=== PATIENT | female | born 1980 | race Hispanic/Latino ===

== ENCOUNTER → 2016-08-25 | Outpatient (CLI) | payer OTHER ==
[~2016-08-25] MED LIST: AC325T PO; AGM875T PO; CPR500T PO; DCS100C PO; FAMO20TA5 PO; FERR325T74 PO; HYDR-2890 PO; HYDR-34 PO; IBP800T PO; METR500T PO; NITR-65 PO; ONDAN4ODT PO; PREN1TAB19 PO; PREN1TAB39 PO; TRM50T PO
--- NOTE | 2016-08-25 09:55 | Diagnostic Imaging Report ---
EXAMINATION: Bilateral diagnostic mammogram with a Computer Aided Detection (CAD) system. COMPARISON: 03/28/2014. INDICATION: Enlargement of a palpable mass in the central upper aspect of the right breast. FINDINGS: The breasts are composed of heterogeneously dense parenchyma which may decrease mammographic sensitivity. There is a biopsy clip marking a lesion in the central upper aspect of the right breast. This appears slightly more prominent compared to the prior exam and would correspond with the palpable area. The left breast demonstrates no change. IMPRESSION: The previously biopsy-proven fibroadenoma appears more prominent compared to the prior exam in the central slightly upper aspect of the right breast. An ultrasound evaluation is pending. ACR BI-RADS Category 0: Incomplete. (Needs additional imaging evaluation). Result letter will be mailed to the patient. Note: At least 10% of breast cancer is not imaged by mammography. Dictated by: Dictated on workstation # [id number]
--- NOTE | 2016-08-25 10:06 | Diagnostic Imaging Report ---
EXAMINATION: Bilateral breast ultrasound. INDICATION: Bilateral breast lumps. FINDINGS: There is a hypoechoic lobulated lesion in the right breast at the 11 o'clock zone 1 cm from the nipple measuring 2 x 1.1 x 1.9 cm in size. A biopsy clip is noted in the center of this lesion. There is no internal vascularity demonstrated with color Doppler. This is compatible with a fibroadenoma as confirmed with the biopsy results previously. The left breast area of lump around the 2 to 3 o'clock zone was scanned with no underlying abnormality seen. IMPRESSION: Stable right breast biopsy-proven fibroadenoma at the 11 o'clock zone. The left breast palpable area demonstrates no underlying lesion. Clinical followup is recommended. ACR BI-RADS Category 2: Benign findings. Dictated by: Dictated on workstation # [id number]
== END ==
LOC: RAD 08:09
PROVIDERS: ATTEND Nurse Practitioner Family
DX: D24.1 Benign neoplasm of right breast (principal)
CPT/HCPCS: 76642; 77066

== ENCOUNTER → 2016-11-27 | Outpatient (CLI) | payer OTHER ==
--- NOTE | 2016-11-27 16:01 | Diagnostic Imaging Report ---
INDICATION: Pelvic pain TECHNIQUE: Multiple real time abad scale sonographic images were obtained of the pelvis transabdominally and transvaginally. CORRELATION STUDY: None FINDINGS: UTERUS/ENDOMETRIUM: Uterus measures 7.9 x 5.2 x 4.1 cm. Endometrial thickness is 8 mm. The uterus and endometrium appearing unremarkable. RIGHT OVARY: 3.3 x 3.0 x 2.0 cm. LEFT OVARY: 2.2 x 2.7 x 1.9 cm. Few small cysts and follicles, likely physiologic of both ovaries. Vascular flow is demonstrated to both ovaries. No significant free pelvic fluid. IMPRESSION: 1. Unremarkable appearing pelvic ultrasound examination. Dictated by: Dictated on workstation # [id number]
== END ==
LOC: RAD 13:14
PROVIDERS: ATTEND Family Medicine
DX: R10.2 Pelvic and perineal pain (principal)
CPT/HCPCS: 76830; 76856

== ENCOUNTER 2018-07-07 07:45 | Inpatient (IN) | payer SELFPAY ==
[~2018-07-07] VITALS: Ht 153 cm; Wt 59.0 kg
[2018-07-07] MEDS ORDERED: NS IV 1000 ML 1,000 ML IV STA (08:03)
[2018-07-07] MEDS ORDERED: fentaNYL INJECTION 100 MCG/2 ML AMP IVP STA (08:03)
[2018-07-07 08:13] LABS: BASOPHILS % (AUTO) 0 % (0-10); EOSINOPHILS # (AUTO) 0.6 10^3/uL (0.0-0.3); EOSINOPHILS % (AUTO) 4 % (0-10); HEMATOCRIT 42 % (35-52); HEMOGLOBIN 14.2 G/DL (11.5-16.0); LYMPHOCYTES # (AUTO) 0.9 X 10^3 (1.0-4.0); LYMPHOCYTES % (AUTO) 6 % (12-44); MEAN CORPUSCULAR HEMOGLOBIN 31 PG (25-34); MEAN CORPUSCULAR HGB CONC 34 G/DL (32-36); MEAN CORPUSCULAR VOLUME 90 FL (80-99); MEAN PLATELET VOLUME 10.6 FL (7.4-10.4); MONOCYTES # (AUTO) 0.8 X 10^3 (0.0-1.0); MONOCYTES % (AUTO) 5 % (0-12); NEUTROPHILS # (AUTO) 13.1 X 10^3 (1.8-7.8); NEUTROPHILS % (AUTO) 85 % (42-75); PLATELET COUNT 360 10^3/uL (130-400); RED CELL DISTRIBUTION WIDTH 13.1 % (10.0-14.5); WHITE BLOOD COUNT 15.4 10^3/uL (4.3-11.0)
[2018-07-07] MEDS ORDERED: ONDANSETRON 4 MG/2 ML (SDV) Z0FRAN IVP ONE (08:15)
--- NOTE | 2018-07-07 08:16 | ED Abdominal Pain ---
General Chief Complaint: Abdominal/GI Problems Stated Complaint: ABD PAIN Source of Information: Patient Exam Limitations: Language Barrier History of Present Illness Date Seen by Provider: July 07, 2018 Time Seen by Provider: 07:56 Initial Comments History using and paravertebral line. Patient here with report of left upper quadrant abdominal pain that has been intermittent for the last 3 days but much worse today. States that severe. Has nausea but no vomiting. Denies diarrhea. Denies blood in urine or stool. Denies dysuria. States pain is severe. No aggravating or relieving factors. Timing/Duration: 2-3 Days, Changing Over Time, Getting Worse Severity/Quality: Severe, Aching Location: [facility] Radiation: No Radiation Activities at Onset: None Modifying Factors: Worsens With Movement Associated Symptoms: No Back Pain, No Chest Pain, No Fever/Chills; Nausea/ Vomiting; No Shortness of Air, No Weakness Allergies and Home Medications Allergies Coded Allergies: No Known Drug Allergies (Unverified , 07/15/12) Home Medications Acetaminophen 325 Mg Tablet, 325 MG PO PRN, (Reported) Ciprofloxacin 500 Mg Tablet, 1 TAB PO BID, (Reported) NEW SCRIPT Ibuprofen 800 Mg Tab, 800 MG PO PRN, (Reported) FEVER Patient Home Medication List Home Medication List Reviewed: Yes Review of Systems Review of Systems Constitutional: see HPI; No chills, No fever EENTM: No Symptoms Reported Respiratory: No Symptoms Reported Cardiovascular: Denies Chest Pain, Denies Edema Gastrointestinal: Abdominal Pain; Denies Diarrhea; Nausea; Denies Vomiting Genitourinary: No Symptoms Reported Musculoskeletal: no symptoms reported Skin: no symptoms reported Psychiatric/Neurological: No Symptoms Reported All Other Systems Reviewed Negative Unless Noted: Yes Past Rhphjrd-Whdymy-Nyhgwe Hx Past Med/Social Hx: Reviewed Nursing Past Med/Soc Hx Patient Social History Alcohol Use: Denies Use Recreational Drug Use: No Smoking Status: Never a Smoker Recent Foreign Travel: No Contact w/Someone Who Travel: No Past Medical History Surgeries: Yes (breast biopsy a hand or was 4 ordered hCG of blood staining his send) Respiratory: No Cardiac: No Neurological: No : No Reproductive Disorders: No Sexually Transmitted Disease: Yes Genitourinary: No Gastrointestinal: No Musculoskeletal: No Endocrine: No HEENT: No Family Medical History Reviewed Nursing Family Hx No Pertinent Family Hx Physical Exam Vital Signs Vital Signs - First Documented 07/07/18 07:49 Temp 98.4 Pulse 67 Resp 18 B/P (MAP) 121/87 (98) Pulse Ox 99 O2 Delivery Room Air Capillary Refill : Height/Weight/BMI Height: 4'8.00" Weight: 130lbs. oz. 58.652738vs; BMI Method:Stated General Appearance: WD/WN, no apparent distress HEENT: PERRL/EOMI, pharynx normal Neck: full range of motion, supple Respiratory: lungs clear, normal breath sounds (the) Cardiovascular: regular rate, rhythm, no murmur Peripheral Pulses: 2+ Dorsalis Pedis (R), 2+ Left Dors-Pedis (L), 2+ Radial Pulses (R), 2+ Radial Pulses (L) Gastrointestinal: No guarding, No rebound; tenderness Extremities: non-tender, normal inspection Back: normal inspection, no CVA tenderness, no vertebral tenderness Neurologic/Psychiatric: alert, oriented x 3 Skin: normal color, warm/dry Progress/Results/Core Measures Results/Orders Lab Results Laboratory Tests Test 07/07/18 08:04 07/07/18 08:11 Range/Units White Blood Count 15.4 H 4.3-11.0 10^3/uL Red Blood Count 4.62 4.35-5.85 10^6/uL Hemoglobin 14.2 11.5-16.0 G/DL Hematocrit 42 35-52 % Mean Corpuscular Volume 90 80-99 FL Mean Corpuscular Hemoglobin 31 25-34 PG Mean Corpuscular Hemoglobin Concent 34 32-36 G/DL Red Cell Distribution Width 13.1 10.0-14.5 % Platelet Count 360 130-400 10^3/uL Mean Platelet Volume 10.6 H 7.4-10.4 FL Neutrophils (%) (Auto) 85 H 42-75 % Lymphocytes (%) (Auto) 6 L 12-44 % Monocytes (%) (Auto) 5 0-12 % Eosinophils (%) (Auto) 4 0-10 % Basophils (%) (Auto) 0 0-10 % Neutrophils # (Auto) 13.1 H 1.8-7.8 X 10^3 Lymphocytes # (Auto) 0.9 L 1.0-4.0 X 10^3 Monocytes # (Auto) 0.8 0.0-1.0 X 10^3 Eosinophils # (Auto) 0.6 H 0.0-0.3 10^3/uL Basophils # (Auto) 0.0 0.0-0.1 10^3/uL Neutrophils % (Manual) 83 % Lymphocytes % (Manual) 3 % Monocytes % (Manual) 6 % Eosinophils % (Manual) 5 % Band Neutrophils 3 % Blood Morphology Comment NORMAL Sodium Level 141 135-145 MMOL/L Potassium Level 4.1 3.6-5.0 MMOL/L Chloride Level 106 98-107 MMOL/L Carbon Dioxide Level 24 21-32 MMOL/L Anion Gap 11 5-14 MMOL/L Blood Urea Nitrogen 13 7-18 MG/DL Creatinine 0.82 0.60-1.30 MG/DL Estimat Glomerular Filtration Rate > 60 BUN/Creatinine Ratio 16 Glucose Level 111 H 70-105 MG/DL Calcium Level 9.5 8.5-10.1 MG/DL Corrected Calcium 9.3 8.5-10.1 MG/DL Total Bilirubin 0.5 0.1-1.0 MG/DL Aspartate Amino Transf (AST/SGOT) 25 5-34 U/L Alanine Aminotransferase (ALT/SGPT) 20 0-55 U/L Alkaline Phosphatase 57 40-136 U/L Total Protein 7.5 6.4-8.2 GM/DL Albumin 4.3 3.2-4.5 GM/DL Amylase Level 49 25-125 U/L Lipase 17 8-78 U/L Serum Test, Qualitative NEGATIVE NEGATIVE Urine Color YELLOW Urine Clarity CLEAR Urine pH 8 5-9 Urine Specific [place] 1.015 L 1.016-1.022 Urine Protein 2+ H NEGATIVE Urine Glucose (UA) NEGATIVE NEGATIVE Urine Ketones 2+ H NEGATIVE Urine Nitrite NEGATIVE NEGATIVE Urine Bilirubin NEGATIVE NEGATIVE Urine Urobilinogen NORMAL NORMAL MG/DL Urine Leukocyte Esterase 2+ H NEGATIVE Urine RBC (Auto) 1+ H NEGATIVE Urine RBC RARE /HPF Urine WBC 2-5 /HPF Urine Squamous Epithelial Cells 10-25 H /HPF Urine Crystals PRESENT H /LPF Urine Amorphous Sediment MOD JHOANA PHOSPHATE H /LPF Urine Bacteria TRACE /HPF Urine Casts NONE /LPF Urine Mucus MODERATE H /LPF Urine Culture Indicated YES My Orders Orders - BRI BARRAGAN MD Amylase (07/07/18 08:03) Cbc With Automated Diff (07/07/18 08:03) Comprehensive Metabolic Panel (07/07/18 08:03) Hcg,Qualitative Serum (07/07/18 08:03) Lipase (07/07/18 08:03) Ua Culture If Indicated (07/07/18 08:03) Ondansetron Injection (Zofran Injectio (07/07/18 08:15) Ns Iv 1000 Ml (Sodium Chloride 0.9%) (07/07/18 08:03) Ed Iv/Invasive Line Start (07/07/18 08:03) Fentanyl Injection (Sublimaze Injection (07/07/18 08:03) Manual Differential (07/07/18 08:04) Urine Culture (07/07/18 08:11) Ct Abdomen/Pelvis W (07/07/18 08:39) Iohexol Injection (Omnipaque 350 Mg/Ml 1 (07/07/18 09:00) Received Contrast (Hold Metformin- Contr (07/07/18 09:00) Sodium Chloride Flush (Catheter Flush Sy (07/07/18 09:00) Ns (Ivpb) (Sodium Chloride 0.9% Ivpb Bag (07/07/18 09:00) Medications Given in ED Current Medications Medications Dose Ordered Sig/Arsenio Route Start Time Stop Time Status Last Admin Dose Admin Iohexol 100 ml ONCE ONCE IV 07/07/18 09:00 07/07/18 09:01 DC 07/07/18 09:24 100 ML Ondansetron HCl 4 mg ONCE ONCE IVP 07/07/18 08:15 07/07/18 08:16 DC 07/07/18 08:16 4 MG Sodium Chloride 10 ml NEEDED PRN IV 07/07/18 09:00 07/07/18 09:24 10 ML Sodium Chloride 100 ml ONCE ONCE IV 07/07/18 09:00 07/07/18 09:01 DC 07/07/18 09:24 80 ML Vital Signs/I&O 07/07/18 07:49 Temp 98.4 Pulse 67 Resp 18 B/P (MAP) 121/87 (98) Pulse Ox 99 O2 Delivery Room Air Progress Progress Note : Progress Note Seen and evaluated. IV, labs, UA, normal saline 1 L bolus, Zofran 4 mg IV and fentanyl 50 g IV ordered. Monitor patient. CT complete. Does show small bowel obstruction. Patient will require NG tube. Nurse talked with the patient about findings and concerns and NG tube was placed. Patient to be admitted. I did discuss the case with Dr. Zhao at 1017 and he accepts patient for consult. I discussed the case with Dr. Navarro at 1045 and she accepts patient for admission. Admit, inpatient status. Patient agrees with plan. Diagnostic Imaging Diagonstic Imaging: CT Plain Films/CT/US/NM/MRI: abdomen, pelvis Comments [facility], [place] NAME: FROILAN PACHECO [facility] REC#: [id number] PT STATUS: REG ER : 1980 PHYSICIAN: BRI BARRAGAN MD ADMIT DATE: 07/07/18/ER Draft Date of Exam:07/07/18 CT ABDOMEN/PELVIS W PROCEDURE: CT abdomen and pelvis with contrast. TECHNIQUE: Multiple contiguous axial images were obtained through the abdomen and pelvis after administration of intravenous contrast. Auto Exposure Controls were utilized during the CT exam to meet ALARA standards for radiation dose reduction. INDICATION: Abdominal pain. Comparison is made with prior CT from 06/02/2011. Lung bases are clear of acute infiltrates. There is calcified granuloma in the right lower lobe. Study is moderately compromised due to respiratory motion. There is some moderate fluid-filled distention to the stomach. There are also multiple fluid-filled and distended small bowel loops throughout the abdomen. There appear to be normal caliber distal small bowel loops with transition. Features are concerning for small bowel obstruction. The colon is decompressed. There is a small amount of free fluid surrounding the liver. There is some free fluid in the pelvis. No well-formed fluid collection or abscess is seen. No free air is identified. No discrete liver mass is seen. Gallbladder is unremarkable. There is no biliary duct dilatation. The pancreas and spleen are unremarkable. No adrenal mass is seen. Kidneys are unremarkable. Aorta is nonaneurysmal. Uterus and bladder are unremarkable. Sclerotic focus left femoral head is similar to study from 2012, consistent with benign etiology. IMPRESSION: Compromised by motion artifact. There is moderate fluid-filled distention to the stomach and small bowel loops with transition distally consistent with small bowel obstruction. Free fluid is present. No other significant abnormality is detected. Dictated on workstation # [id number] Dict: 07/07/18 0926 Trans: 07/07/[address] [facility] [id number] Interpreted by: CHRISTINA SHARIF MD Electronically signed by: Departure Communication (Admissions) Time/Spoke to Admitting Phy: 10:45 Time/Spoke to Consulting Phy: 10:17 Impression Primary Impression: Small bowel obstruction Disposition: ADMITTED INPATIENT Condition: Stable Admissions Decision to Admit Reason: Admit from ER (General) Decision to Admit/Date: July 07, 2018 Time/Decision to Admit Time: 10:17 Departure-Patient Inst. Referrals: LIV FREEMAN DO (PCP) Primary Care Physician PRAKASH ANGEL APRN (Family) Primary Care Physician BRI BARRAGAN MD July 07, 2018 08:15
[2018-07-07 08:30] LABS: BILIRUBIN,URINE NEGATIVE (NEGATIVE); GLUCOSE, URINE (UA) NEGATIVE (NEGATIVE); KETONES,URINE 2+ (NEGATIVE); LEUKOCYTE ESTERASE ,URINE 2+ (NEGATIVE); NITRITE,URINE NEGATIVE (NEGATIVE); PH,URINE 8 (5-9); PROTEIN,URINE 2+ (NEGATIVE); UROBILINOGEN,URINE NORMAL (NORMAL)
[2018-07-07 08:31] LABS: BACTERIA,URINE TRACE /HPF; CLARITY,URINE CLEAR; COLOR,URINE YELLOW; RBC,URINE RARE /HPF
[2018-07-07 08:32] LABS: AMORPHOUS SEDIMENT,UR MOD AMOR PHOSPHATE /LPF
[2018-07-07 08:34] LABS: ALANINE AMINOTRANSFERASE 20 U/L (0-55); ALBUMIN 4.3 GM/DL (3.2-4.5); ALKALINE PHOSPHATASE 57 U/L (40-136); AMYLASE 49 U/L (25-125); BILIRUBIN,TOTAL 0.5 MG/DL (0.1-1.0); BUN/CREATININE RATIO 16; CALCIUM 9.5 MG/DL (8.5-10.1); CARBON DIOXIDE 24 MMOL/L (21-32); CHLORIDE 106 MMOL/L (98-107); CREATININE SERUM 0.82 MG/DL (0.60-1.30); GFR ESTIMATED > 60; GLUCOSE 111 MG/DL (70-105); LIPASE 17 U/L (8-78); POTASSIUM 4.1 MMOL/L (3.6-5.0); SODIUM 141 MMOL/L (135-145); TOTAL PROTEIN 7.5 GM/DL (6.4-8.2)
[2018-07-07 08:51] LABS: BAND NEUTROPHILS 3 %; EOSINOPHILS % (MANUAL) 5 %; LYMPHOCYTES % (MANUAL) 3 %; MONOCYTES % (MANUAL) 6 %; NEUTROPHILS % (MANUAL) 83 %
[2018-07-07 08:52] LABS: RBC MORPH NORMAL
[2018-07-07] MEDS ORDERED: CATHETER FLUSH 10 ML SYR IV PRN ×2 (09:00→13:45)
[2018-07-07] MEDS ORDERED: HOLD METFORMIN - RECEIVED CONTRAST 20 ML VIAL IV SCH (09:00)
[2018-07-07] MEDS ORDERED: NS 100 ML (IVPB) BAG IV ONE (09:00)
[2018-07-07] MEDS ORDERED: IOHEXOL 350 MG/ML 100 ML (OMNIPAQUE 350) VIAL IV ONE (09:00)
--- NOTE | 2018-07-07 09:37 | Diagnostic Imaging Report ---
PROCEDURE: CT abdomen and pelvis with contrast. TECHNIQUE: Multiple contiguous axial images were obtained through the abdomen and pelvis after administration of intravenous contrast. Auto Exposure Controls were utilized during the CT exam to meet ALARA standards for radiation dose reduction. INDICATION: Abdominal pain. Comparison is made with prior CT from 06/02/2011. Lung bases are clear of acute infiltrates. There is calcified granuloma in the right lower lobe. Study is moderately compromised due to respiratory motion. There is some moderate fluid-filled distention to the stomach. There are also multiple fluid-filled and distended small bowel loops throughout the abdomen. There appear to be normal caliber distal small bowel loops with transition. Features are concerning for small bowel obstruction. The colon is decompressed. There is a small amount of free fluid surrounding the liver. There is some free fluid in the pelvis. No well-formed fluid collection or abscess is seen. No free air is identified. No discrete liver mass is seen. Gallbladder is unremarkable. There is no biliary duct dilatation. The pancreas and spleen are unremarkable. No adrenal mass is seen. Kidneys are unremarkable. Aorta is nonaneurysmal. Uterus and bladder are unremarkable. Sclerotic focus left femoral head is similar to study from 2012, consistent with benign etiology. IMPRESSION: Compromised by motion artifact. There is moderate fluid-filled distention to the stomach and small bowel loops with transition distally consistent with small bowel obstruction. Free fluid is present. No other significant abnormality is detected. Dictated by: Dictated on workstation # [id number]
--- NOTE | 2018-07-07 09:46 | NUR ---
TO ROOM EYES CLOSED APPEARS TO BE RESTING FRIEND NOT AT BEDSIED. PHONE RANG PATIENT ANSWERED.
--- NOTE | 2018-07-07 10:25 | NUR ---
LANGUAGE LINE CALLED TO EXPLAIN NG PROCEDURE TO HER.
--- OUTSIDE RECORDS SUMMARY | 2018-07-07 11:11 | XMS REPORT | Continuity of Care Document ---
Demographics Address [address] [place] [address] x Preferred Language Unknown Marital Status Unknown Moravian Affiliation Unknown Race Unknown Ethnic Group Unknown Author Organization Unknown Address Unknown Allergies Active Description Code Type Severity Reaction Onset Reported/Identified Relationship to Patient Clinical Status Yes No Known Drug Allergies [id number] Drug Allergy Unknown N/A 07/15/2012 Medications There is no data. Problems Date Dx Coded Attending Type Code Diagnosis Diagnosed By 05/03/2010 Ot 285.9 05/03/2010 Ot 616.10 05/03/2010 Ot 644.21 05/03/2010 Ot 646.61 05/03/2010 Ot 648.22 05/03/2010 Ot 648.91 05/03/2010 Ot 658.01 05/03/2010 Ot 658.11 05/03/2010 Ot 658.41 05/03/2010 Ot 664.11 05/03/2010 Ot V02.51 05/03/2010 Ot V06.1 05/03/2010 Ot V23.7 05/03/2010 Ot V27.0 02/17/2011 Ot 784.0 05/31/2011 Ot 530.81 ESOPHAGEAL REFLUX 05/31/2011 Ot 789.06 ABDOMINAL PAIN, EPIGASTRIC 06/02/2011 Ot 784.0 HEADACHE 06/02/2011 Ot 789.06 ABDOMINAL PAIN, EPIGASTRIC 06/02/2011 Ot 599.0 URIN TRACT INFECTION NOS 06/02/2011 Ot 789.00 ABDOMINAL PAIN, UNSPECIFIED SITE 05/14/2012 Ot 661.31 PRECIPITATE LABOR-DELIV 05/14/2012 Ot 664.11 DEL W 2 DEG LACERAT-DEL 05/14/2012 Ot V27.0 DELIVER- SINGLE LIVEBORN 03/21/2014 Ot 789.00 03/21/2014 Ot 656.63 03/23/2014 TERRENCE CALLAHAN ULTRASOUND TECHNOLOGIST SONOGRAPHER Ot 611.6 03/23/2014 TERRENCE CALLAHAN ULTRASOUND TECHNOLOGIST SONOGRAPHER Ot 611.72 03/28/2014 Ot 789.00 03/28/2014 Ot 656.63 03/28/2014 JA CALLAHANIDI A ULTRASOUND TECHNOLOGIST SONOGRAPHER Ot 611.6 03/28/2014 LONDON TERRENCE A ULTRASOUND TECHNOLOGIST SONOGRAPHER Ot 611.72 03/30/2014 L[place]ON TERRENCE A ULTRASOUND TECHNOLOGIST SONOGRAPHER Ot 611.72 05/15/2014 L[place]ON TERRENCE A ULTRASOUND TECHNOLOGIST SONOGRAPHER Ot 611.72 11/02/2014 [place]ON TERRENCE A ULTRASOUND TECHNOLOGIST SONOGRAPHER Ot 611.72 08/25/2016 Ot 789.00 ABDOMINAL PAIN, UNSPECIFIED SITE 08/25/2016 Ot 656.63 EXCESS FET GRTH-ANTEPART 08/25/2016 LONDONAJTERRENCE A ULTRASOUND TECHNOLOGIST SONOGRAPHER Ot 611.6 GALACTORRHEA-NONOBSTET 08/25/2016 LONDONAJTERRENCE A ULTRASOUND TECHNOLOGIST SONOGRAPHER Ot 611.72 LUMP OR MASS IN BREAST 08/25/2016 [place] TERRENCE A ULTRASOUND TECHNOLOGIST SONOGRAPHER Ot 611.72 LUMP OR MASS IN BREAST 08/27/2016 PRAKASH ANGEL ULTRASOUND TECHNOLOGIST SONOGRAPHER Ot D24.1 BENIGN NEOPLASM OF RIGHT BREAST 11/27/2016 Ot 656.63 EXCESS FET GRTH-ANTEPART 11/27/2016 LONDONAJTERRENCE A ULTRASOUND TECHNOLOGIST SONOGRAPHER Ot 611.6 GALACTORRHEA-NONOBSTET 11/27/2016 LONDONAJTERRENCE A ULTRASOUND TECHNOLOGIST SONOGRAPHER Ot 611.72 LUMP OR MASS IN BREAST 11/27/2016 [place] TERRENCE A ULTRASOUND TECHNOLOGIST SONOGRAPHER Ot 611.72 LUMP OR MASS IN BREAST 11/27/2016 PRAKASH ANGEL ULTRASOUND TECHNOLOGIST SONOGRAPHER Ot D24.1 BENIGN NEOPLASM OF RIGHT BREAST 11/27/2016 Ot 656.63 EXCESS FET GRTH-ANTEPART 11/27/2016 LONDONAJTERRENCE A ULTRASOUND TECHNOLOGIST SONOGRAPHER Ot 611.6 GALACTORRHEA-NONOBSTET 11/27/2016 LONDONAJTERRENCE A ULTRASOUND TECHNOLOGIST SONOGRAPHER Ot 611.72 LUMP OR MASS IN BREAST 11/27/2016 LONDONAJTERRENCE A ULTRASOUND TECHNOLOGIST SONOGRAPHER Ot 611.72 LUMP OR MASS IN BREAST 11/27/2016 PRAKASH ANGEL ULTRASOUND TECHNOLOGIST SONOGRAPHER Ot D24.1 BENIGN NEOPLASM OF RIGHT BREAST 01/09/2017 AMY MIX, LISSETTE Resendez Ot R10.2 PELVIC AND PERINEAL PAIN Procedures Code Description Performed By Performed On 75.69 REPAIR OB LACERATION NEC 05/13/2012 Results Test Result Range Complete blood count (CBC) with automated white blood cell (WBC) differential - 07/07/18 08:04 Blood leukocytes automated count (number/volume) 15.4 10*3/uL 4.3-11.0 Blood erythrocytes automated count (number/volume) 4.62 10*6/uL 4.35-5.85 Venous blood hemoglobin measurement (mass/volume) 14.2 g/dL 11.5-16.0 Blood hematocrit (volume fraction) 42 % 35-52 Automated erythrocyte mean corpuscular volume 90 [foz_us] 80-99 Automated erythrocyte mean corpuscular hemoglobin (mass per erythrocyte) 31 pg 25-34 Automated erythrocyte mean corpuscular hemoglobin concentration measurement ( mass/volume) 34 g/dL 32-36 Automated erythrocyte distribution width ratio 13.1 % 10.0-14.5 Automated blood platelet count (count/volume) 360 10*3/uL 130-400 Automated blood platelet mean volume measurement 10.6 [foz_us] 7.4-10.4 Automated blood neutrophils/100 leukocytes 85 % 42-75 Automated blood lymphocytes/100 leukocytes 6 % 12-44 Blood monocytes/100 leukocytes 5 % 0-12 Automated blood eosinophils/100 leukocytes 4 % 0-10 Automated blood basophils/100 leukocytes 0 % 0-10 Blood neutrophils automated count (number/volume) 13.1 10*3 1.8-7.8 Blood lymphocytes automated count (number/volume) 0.9 10*3 1.0-4.0 Blood monocytes automated count (number/volume) 0.8 10*3 0.0-1.0 Automated eosinophil count 0.6 10*3/uL 0.0-0.3 Automated blood basophil count (count/volume) 0.0 10*3/uL 0.0-0.1 Serum or plasma choriogonadotropin ( test) detection - 07/07/18 08:04 Serum or plasma choriogonadotropin ( test) detection NEGATIVE NEGATIVE Comprehensive metabolic panel - 07/07/18 08:04 Serum or plasma sodium measurement (moles/volume) 141 mmol/L 135-145 Serum or plasma potassium measurement (moles/volume) 4.1 mmol/L 3.6-5.0 Serum or plasma chloride measurement (moles/volume) 106 mmol/L 98-107 Carbon dioxide 24 mmol/L 21-32 Serum or plasma anion gap determination (moles/volume) 11 mmol/L 5-14 Serum or plasma urea nitrogen measurement (mass/volume) 13 mg/dL 7-18 Serum or plasma creatinine measurement (mass/volume) 0.82 mg/dL 0.60-1.30 Serum or plasma urea nitrogen/creatinine mass ratio 16 NRG Serum or plasma creatinine measurement with calculation of estimated glomerular filtration rate > NRG Serum or plasma glucose measurement (mass/volume) 111 mg/dL 70-105 Serum or plasma calcium measurement (mass/volume) 9.5 mg/dL 8.5-10.1 Serum or plasma total bilirubin measurement (mass/volume) 0.5 mg/dL 0.1-1.0 Serum or plasma alkaline phosphatase measurement (enzymatic activity/volume) 57 U/L 40-136 Serum or plasma aspartate aminotransferase measurement (enzymatic activity/ volume) 25 U/L 5-34 Serum or plasma alanine aminotransferase measurement (enzymatic activity/volume ) 20 U/L 0-55 Serum or plasma protein measurement (mass/volume) 7.5 g/dL 6.4-8.2 Serum or plasma albumin measurement (mass/volume) 4.3 g/dL 3.2-4.5 CALCIUM CORRECTED 9.3 mg/dL 8.5-10.1 Serum or plasma amylase measurement (enzymatic activity/volume) - 07/07/18 08: 04 Serum or plasma amylase measurement (enzymatic activity/volume) 49 U /L 25-125 Lipase - 07/07/18 08:04 Lipase 17 U/L 8-78 Blood manual differential performed detection - 07/07/18 08:04 Blood monocytes/100 leukocytes 6 % NRG Manual blood segmented neutrophils/100 leukocytes 83 % NRG Blood band neutrophils/100 leukocytes 3 % NRG Manual blood lymphocytes/100 leukocytes 3 % NRG Manual eosinophils/100 leukocytes in nose 5 % NRG Blood erythrocyte morphology finding identification NORMAL NRG Complete urinalysis with reflex to culture - 07/07/18 08:11 Urine color determination YELLOW NRG Urine clarity determination CLEAR NRG Urine pH measurement by test strip 8 5-9 Specific gravity of urine by test strip 1.015 1.016- 1.022 Urine protein assay by test strip, semi-quantitative 2+ NEGATIVE Urine glucose detection by automated test strip NEGATIVE NEGATIVE Erythrocytes detection in urine sediment by light microscopy 1+ NEGATIVE Urine ketones detection by automated test strip 2+ NEGATIVE Urine nitrite detection by test strip NEGATIVE NEGATIVE Urine total bilirubin detection by test strip NEGATIVE NEGATIVE Urine urobilinogen measurement by automated test strip (mass/volume) NORMAL NORMAL Urine leukocyte esterase detection by dipstick 2+ NEGATIVE Automated urine sediment erythrocyte count by microscopy (number/high power field) RARE NRG Automated urine sediment leukocyte count by microscopy (number/high power field ) [HPF] NRG Bacteria detection in urine sediment by light microscopy TRACE NRG Squamous epithelial cells detection in urine sediment by light microscopy 10-25 NRG Crystals detection in urine sediment by light microscopy PRESENT NRG Casts detection in urine sediment by light microscopy NONE NRG Mucus detection in urine sediment by light microscopy MODERATE NRG Complete urinalysis with reflex to culture YES NRG Amorphous sediment detection in urine sediment by light microscopy MOD JHOANA PHOSPHATE NRG Encounters ACCT No. Visit Date/Time Discharge Status Pt. Type Provider Facility Loc./Unit Complaint [id number] 11/27/2016 13:14:00 11/27/2016 23:59:59 CLS Outpatient LISSETTE REYES MD [facility] RAD PELVIC PAIN [id number] 08/25/2016 08:09:00 08/25/2016 23:59:59 CLS Outpatient PRAKASH ANGEL ULTRASOUND TECHNOLOGIST SONOGRAPHER [facility] RAD N63. BREAST LUMP [id number] 03/28/2014 10:18:00 03/28/2014 23:59:59 CLS Outpatient TERRENCE CALLAHAN APRN [facility] RAD TWO CM MASS ON RIGHT BREAST [id number] 03/21/2014 11:43:00 03/21/2014 23:59:59 CLS Outpatient TERRENCE CALLAHAN ULTRASOUND TECHNOLOGIST SONOGRAPHER [facility] RAD BILATERAL GLACTERIA RIGHT BREAST LUMP [id number] 07/15/2012 16:33:00 07/17/2012 16:29:00 DIS Inpatient [id number] 07/07/2018 08:17:00 Document Registration [id number] 05/13/2012 02:25:00 Document Registration [id number] 02/04/2012 11:25:00 Document Registration [id number] 06/05/2011 09:24:00 Document Registration [id number] 06/02/2011 21:00:00 Document Registration [id number] 06/01/2011 23:10:00 Document Registration [id number] 05/31/2011 21:21:00 Document Registration [id number] 02/17/2011 18:10:00 Document Registration [id number] 04/30/2010 07:22:00 Document Registration
--- NOTE | 2018-07-07 11:48 | NUR ---
WILL CALL BACK WITH PATIENT.
--- NOTE | 2018-07-07 12:17 | NUR ---
300CC OUT FROM NG
[2018-07-07 12:40] VITALS: BP 114/67
--- NOTE | 2018-07-07 13:16 | NUR ---
SINCE ADMIT PATIENT HAS BEEN INSISTENT ABOUT TAKING NG TUBE OUT. PATIENT STATES TO THIS RN (THROUGH SKIVER BOX TOE)" I AM HAVING BOWEL MOVEMENT MOVEMENTS AND BY STOMACH DOES NOT HURT!" PATIENT STATES THIS OVER AND OVER AGAIN PER SKIVER BOX TOE. PATIENT ALSO STATES PER SKIVER BOX TOE " I WOULD RATHER HAVE SURGERY ON MY BOWELS THAN HAVE THIS TUBE UP MY NOSE." PATIENT IS TEARFUL AND STATES THAT HER LEFT THROAT AND LEFT EAR HURTS. THIS RN REASSURED PATIENT AND THIS RN STATES "WE HAVE MEDICATIONS THAT WE CAN GIVE YOU TO MAKE YOUR THROAT FEEL BETTER AND HELP YOUR PAIN. THIS RN THROUGH [facility]IVER [facility]OX TOE LINE ALSO TRYING TO ASK ADMISSION QUESTIONS. PATIENT IS NOT ANSWERING QUESTIONS AND KEEPS REPEATING (IN WOLOF) "PLEASE, TAKE THIS TUBE OUT. I WANT IT OUT." WILL CALL DR BLAKE TO NOTIFY HIM ABOUT PTS REQUEST TO HAVE NG OUT AND HER PAIN. WILL CONTINUE TO MONITOR.
--- NOTE | 2018-07-07 13:17 | NUR ---
CALLED DR. BLAKE AT THIS TIME TO NOTIFY HIM OF PATIENT'S PAIN IN LEFT EAR AND THROAT AND THAT SHE IS REQUESTING TO TAKE NG TUBE OUT. STATES "NO, SHE HAS TO KEEP THE TUBE IN. NATALI, MY STUDENT SPEAKS DJIBOUTIAN AND HE EXPLAINED THIS ALL TO HER." DR. BLAKE ALSO STATES " OKAY TO GIVE HER CHLORASEPTIC SPRAY. AND MAKE SURE SHE HAS A SMALL BOWEL FOLLOW THROUGH DONE IN THE MORNING." WILL CARRY OUT ORDERS AND CONTINUE TO MONITOR.
--- NOTE | 2018-07-07 13:41 | NUR ---
NOTIFIED DR. GÓMEZ THAT PATIENT IS VERY TEARFUL AND APPEARS ANXIOUS/ AGITATED. THIS RN ALSO NOTIFIED DR. GÓMEZ THAT THIS RN HAS ALREADY SPOKE WITH DR. BLAKE AND HE ORDERED CHLORASEPTIC SPRAY WHICH, THE PATIENT IS REFUSING. PATIENT ALSO REFUSING FENTANYL AT THIS TIME WELL, DESPITE STATING SHE IS IN A LOT OF PAIN IN HER THROAT AND EAR. DR. GÓMEZ ORDERS IV ATIVAN 1MG X1 DOSE NOW. WILL CARRY OUT ORDERS AND CONTINUE TO MONITOR.
[2018-07-07] MEDS ORDERED: ONDANSETRON 4 MG/2 ML (SDV) Z0FRAN IV PRN (13:45)
[2018-07-07] MEDS ORDERED: LACTATED RINGERS 1,000 ML IV SCH (13:45)
[2018-07-07] MEDS ORDERED: fentaNYL INJECTION 100 MCG/2 ML AMP IV PRN (13:45)
[2018-07-07] MEDS ORDERED: CHLORASEPTIC SPRAY 177 ML LIQUID MC PRN (13:45)
--- NOTE | 2018-07-07 14:08 | NUR ---
NOTIFIED RADIO TELEVISION TECHNICAL DIRECTOR AT THIS TIME THAT PATIENT IS STILL INSISTENT NG TUBE BE PULLED AND THAT SHE WANTS TO GO HOME. RADIO TELEVISION TECHNICAL DIRECTOR, YOSELYN STATES SHE WILL BE UP TO PATIENT ROOM SHORTLY. WILL CONTINUE TO MONITOR.
[2018-07-07] MEDS ORDERED: LORazepam INJ 2 MG/ML (ATIVAN) VIAL IVP NR (14:30)
--- NOTE | 2018-07-07 14:48 | NUR ---
1448-MEDIA SENIOR RECRUITER STATES SHE WAS IN ROOM FOR ALMOST AN HR TALKING WITH PATIENT AND PATIENT STILL INSISTS THAT SHE WANTS NG TUBE PULLED AND TO GO HOME. WILL HAVE PATIENT SIGN AMA PAPER AND TAKE OUT IV AND NOTIFY DR. GÓMEZ AND DR. BLAKE.
--- NOTE | 2018-07-07 14:50 | NUR ---
NOTIFIED DR. GÓMEZ THAT PATIENT IS LEAVING AMA AT THIS TIME. NO NEW ORDERS RECEIVED
--- NOTE | 2018-07-07 14:54 | NUR ---
NOTIFIED DR. BLAKE THAT PATIENT IS LEAVING AMA. NO NEW ORDERS RECEIVED.
--- NOTE | 2018-07-07 14:56 | NUR ---
Referral for point of care technician followup regarding [place]ese-speaking patient who was reporting pain, and changing reasons for wanting discharged. Two [employer] employees were present at the time of my arrival. One said she knew the pt for two years and had a trusting relationship. Pt demonstrated anxiety, crying, holding left side of her neck and repeatedly stating she wanted the tube out of her nose. [employer] had an management professional on the line: when asked if she was afraid, pt said no, she just wanted to go home. RN said she would call the doctor about pt's pain and anxiety. Offered calm presence and remained with the pt until she demonstrated increased calmness and her body relaxed. Pt is a private person and prefers her door remain closed at this time.
--- NOTE | 2018-07-07 15:15 | NUR ---
THIS RN WITH THE HELP OF WASHING MACHINE LOADER LINE WENT OVER AMA PAPER AND PATIENT SIGNED SAID PAPER AT THIS TIME.
--- NOTE | 2018-07-07 16:05 | NUR ---
PATIENT LEFT AMA AT THIS TIME. IV D/C'D AND PATIENT LEFT FLOOR PER AMBULATION WITH BROTHER AND HER CHILDREN AND A SAFE INSTITUTIONAL CUSTODIAN.
--- NOTE | 2018-07-07 16:42 | Consultation (Surgery) ---
History of Present Illness History of Present Illness Patient Consulted On(mamie/time) 07/07/18 10:30 Date Seen by Provider: July 07, 2018 Time Seen by Provider: 11:00 Reason for Visit: Abdominal Pain History of Present Illness Consult requested by Dr. Ledbetter for evaluation of abdominal pain. 38 y/o F presented to our ED with complaint of abdominal pain. She localizes the pain to the LUQ that is sharp in nature, without radiation, 9/10 in severity , that has been constant for the past 2 days. She has experienced similar episodes in the past that spontaneously resolve, however she has not had pain as severe as today. She endorses associated nausea, but without vomiting. She denies CP, SOB, RUEDA, diarrhea, chills, fever, flank pain, back pain and weakness. I reviewed the abdominal CT scan which showed moderate fluid-filled distention to the stomach and small bowel loops with transition distally consistent with SBO. Free fluid is present. No other significant abnormality detected. Patient had an NG tube placed in the ED for decompression and was admitted to the floors. Allergies and Home Medications Allergies Coded Allergies: No Known Drug Allergies (Unverified , 07/15/12) Home Medications Acetaminophen 325 Mg Tablet, 325 MG PO PRN, (Reported) Ibuprofen 800 Mg Tab, 800 MG PO PRN, (Reported) FEVER Patient Home Medication List Home Medication List Reviewed: Yes Past Jffszaw-Xydyfx-Esqhqc Hx Patient Social History Alcohol Use: Denies Use Recreational Drug Use: No Smoking Status: Never a Smoker Recent Foreign Travel: No Contact w/Someone Who Travel: No Recent Infectious Disease Expo: No Recent Hopitalizations: No Surgeries History of Surgeries: No Respiratory History of Respiratory Disorde: No Cardiovascular History of Cardiac Disorders: No Neurological History of Neurological Disord: No Reproductive System : No Hx Reproductive Disorders: No Sexually Transmitted Disease: Yes Genitourinary History of Genitourinary Disor: No Gastrointestinal History of Gastrointestinal Di: No Musculoskeletal History of Musculoskeletal Dis: No Endocrine History of Endocrine Disorders: No HEENT History of HEENT Disorders: No Cancer History of Cancer: No Psychosocial History of Psychiatric Problem: No Integumentary History of Skin or Integumenta: No Blood Transfusions History of Blood Disorders: No Reviewed Nursing Assessment Reviewed/Agree w Nursing PMH: Yes Family Medical History Significant Family History: No Pertinent Family Hx Review of Systems-General Constitutional: no symptoms reported EENTM: no symptoms reported Respiratory: no symptoms reported Cardiovascular: no symptoms reported Gastrointestinal: LUQ, LLQ Genitourinary: no symptoms reported Musculoskeletal: no symptoms reported Skin: no symptoms reported Psychiatric/Neurological: No Symptoms Reported Physical Exam-General Problems Physical Exam Vital Signs Vital Signs - First Documented 07/07/18 07:49 Temp 98.4 Pulse 67 Resp 18 B/P (MAP) 121/87 (98) Pulse Ox 99 O2 Delivery Room Air Capillary Refill : Less Than 3 Seconds General Appearance: WD/WN, moderate distress HEENT: PERRL/EOMI, normal ENT inspection Neck: supple, tender lateral (After placement of NG tube, she began to complain of left lateral neck pain, which is TTP) Respiratory: chest non-tender, lungs clear, no respiratory distress Cardiovascular: regular rate, rhythm, no edema Gastrointestinal: distended (Minimal distention), tenderness (TTP to LUQ and LLQ) Rectal: deferred Back: normal inspection, no CVA tenderness Extremities: normal range of motion, non-tender Neurologic/Psychiatric: reed polisher II-XII nml as tested, alert, oriented x 3 Skin: normal color, warm/dry Data Review Labs Laboratory Tests 07/07/18 08:04: White Blood Count 15.4H, Red Blood Count 4.62, Hemoglobin 14.2, Hematocrit 42, Mean Corpuscular Volume 90, Mean Corpuscular Hemoglobin 31, Mean Corpuscular Hemoglobin Concent 34, Red Cell Distribution Width 13.1, Platelet Count 360, Mean Platelet Volume 10.6H, Neutrophils (%) (Auto) 85H, Lymphocytes (%) (Auto) 6L, Monocytes (%) (Auto) 5, Eosinophils (%) (Auto) 4, Basophils (%) (Auto) 0, Neutrophils # (Auto) 13.1H, Lymphocytes # (Auto) 0.9L, Monocytes # (Auto) 0.8, Eosinophils # (Auto) 0.6H, Basophils # (Auto) 0.0, Neutrophils % (Manual) 83, Lymphocytes % (Manual) 3, Monocytes % (Manual) 6, Eosinophils % (Manual) 5, Band Neutrophils 3, Blood Morphology Comment NORMAL, Sodium Level 141, Potassium Level 4.1, Chloride Level 106, Carbon Dioxide Level 24, Anion Gap 11, Blood Urea Nitrogen 13, Creatinine 0.82, Estimat Glomerular Filtration Rate > 60 , BUN/Creatinine Ratio 16, Glucose Level 111H, Calcium Level 9.5, Corrected Calcium 9.3, Total Bilirubin 0.5, Aspartate Amino Transf (AST/SGOT) 25, Alanine Aminotransferase (ALT/SGPT) 20, Alkaline Phosphatase 57, Total Protein 7.5, Albumin 4.3, Amylase Level 49, Lipase 17, Serum Test, Qualitative NEGATIVE 07/07/18 08:11: Urine Color YELLOW, Urine Clarity CLEAR, Urine pH 8, Urine Specific [place] 1.015L, Urine Protein 2+H, Urine Glucose (UA) NEGATIVE, Urine Ketones 2+H, Urine Nitrite NEGATIVE, Urine Bilirubin NEGATIVE, Urine Urobilinogen NORMAL, Urine Leukocyte Esterase 2+H, Urine RBC (Auto) 1+H, Urine RBC RARE, Urine WBC 2- 5, Urine Squamous Epithelial Cells 10-25H, Urine Crystals PRESENTH, Urine Amorphous Sediment MOD JHOANA PHOSPHATEH, Urine Bacteria TRACE, Urine Casts NONE, Urine Mucus MODERATEH, Urine Culture Indicated YES Assessment/Plan Assessment/Plan Assessment/Plan Small Bowel Obstruction - Conservative management - NPO - IV Fluids - NG Tube for decompression - Small bowel follow through planned for tomorrow morning ANU BLAKE DO July 07, 2018 16:41
== END 2018-07-07 16:05 | disposition left against medical advice (07) | DRG 390 ==
LOC: EDUNIT# 07:45 → ER 07:47 → 4TH 11:08
PROVIDERS: ADMIT Family Medicine; ATTEND Family Medicine
PROC: 0D9670Z Drainage of Stomach with Drainage Device, Via Natural or Artificial Opening (ICD-10-PCS; principal; 2018-07-07)
DX: K56.609 Unspecified intestinal obstruction, unspecified as to partial versus complete obstruction (principal)
CPT/HCPCS: 36415; 74177; 80053; 81000; 82150; 83690; 84703; 85007; 85027; 87088; 96361; 96374; 96375

== ENCOUNTER 2018-12-23 22:20 | Inpatient (IN) | payer OTHER ==
[~2018-12-23] VITALS: Ht 154 cm; Wt 67.8 kg
[2018-12-23] MEDS ORDERED: NS IV 1000 ML 1,000 ML IV SCH ×2 (22:37)
--- NOTE | 2018-12-23 22:40 | ED GU-Female ---
General Stated Complaint: UTI Source: patient, family Exam Limitations: language barrier (language line used) History of Present Illness Date Seen by Provider: Dec 23, 2018 Time Seen by Provider: 22:26 Initial Comments Patient presents ER by private conveyance with her significant others and chief complaint of 2-3 days grossly worsening right flank pain dysuria or hematuria. She is not on control. She has had chills and subjective fever. She is not having any nausea or vomiting right now. She's having right lower quadrant abdominal pain in her groin. The patient says she went to the walk-in clinic at [facility] yesterday and was told she had a bladder infection possible kidney stone. He put her on Pyridium and ciprofloxacin. She continued to get worse. She has no history of kidney stones. Allergies and Home Medications Allergies Coded Allergies: No Known Drug Allergies (Unverified , 07/15/12) Home Medications Acetaminophen 325 Mg Tablet, 325 MG PO PRN, (Reported) Ibuprofen 800 Mg Tab, 800 MG PO PRN, (Reported) FEVER Patient Home Medication List Home Medication List Reviewed: Yes Review of Systems Review of Systems Constitutional: chills, fever, malaise EENTM: No ear discharge, No ear pain Respiratory: No cough, No short of breath Cardiovascular: No chest pain, No edema Gastrointestinal: see HPI; No abdominal pain, No constipation, No diarrhea, No nausea, No vomiting Genitourinary: burning; denies discharge; dysuria, hematuria : No Musculoskeletal: see HPI, back pain Past Espcouv-Jagnnb-Ibmanz Hx Patient Social History Alcohol Use: Denies Use Recreational Drug Use: No Smoking Status: Never a Smoker Recent Foreign Travel: No Contact w/Someone Who Travel: No Recent Hopitalizations: No Past Medical History Surgeries: No Respiratory: No Cardiac: No Neurological: No Reproductive Disorders: No Sexually Transmitted Disease: Yes Genitourinary: No Gastrointestinal: No Musculoskeletal: No Endocrine: No HEENT: No Cancer: No Psychosocial: No Integumentary: No Blood Disorders: No Family Medical History No Pertinent Family Hx Physical Exam Vital Signs Capillary Refill : Height, Weight, BMI Height: 5'0.24" Weight: 130lbs. 0.0oz. [id number]; BMI Method:Stated General Appearance: moderate distress, thin HEENT: PERRL/EOMI, normal ENT inspection, TMs normal; No pharynx normal (oropharynx is dry) Cardiovascular: normal peripheral pulses, regular rate, rhythm, no murmur Respiratory: lungs clear, normal breath sounds, no respiratory distress, no accessory muscle use Gastrointestinal: normal bowel sounds, non tender, soft, no organomegaly Back: normal inspection, no vertebral tenderness, CVA tenderness (R) Extremities: normal range of motion Neurologic/Psychiatric: alert, normal mood/affect, oriented x 3 Skin: normal color, warm/dry Focused Exam Sepsis Stage: Sepsis Possible Source: Genitouriary Lactate Level 12/23/18 22:53: Lactic Acid Level 1.28 Time of Focused Exam: 00:33 Respiratory: Lungs Clear, Normal Breath Sounds, No Accessory Muscle Use, No Respiratory Distress Cardiovascular: Regular Rate, Rhythm, No Edema (she still tachycardia she's now [id number]), Normal Peripheral Pulses Capillary Refill: Less Than 3 Seconds (and distal small that) Peripheral Pulses: 2+ Radial Pulses (R), 2+ Radial Pulses (L) Skin: normal color, warm/dry (all over that why do not we then her) Lactic Acid Level Laboratory Tests Test 12/23/18 22:53 Lactic Acid Level 1.28 MMOL/L (0.50-2.00) Within 3hrs of presentation: Admin fluids, Admin ABX, Blood cultures prior to ABX's, Focus exam, Lactate level Progress/Results/Core Measures Suspected Sepsis SIRS Temperature: Pulse: Respiratory Rate: Laboratory Tests 12/23/18 22:53: White Blood Count 8.9 Blood Pressure / Mean: 12/23/18 22:53: Lactic Acid Level 1.28 Laboratory Tests 12/23/18 22:53: Creatinine 0.94, INR Comment 1.2, Platelet Count 236, Total Bilirubin 1.0 Results/Orders Lab Results Laboratory Tests Test 12/23/18 22:42 12/23/18 22:53 Range/Units Urine Color NAIN H Urine Clarity CLEAR Urine pH 5 5-9 Urine Specific Quimby 1.015 L 1.016-1.022 Urine Protein 2+ H NEGATIVE Urine Glucose (UA) NEGATIVE NEGATIVE Urine Ketones NEGATIVE NEGATIVE Urine Nitrite POSITIVE H NEGATIVE Urine Bilirubin 1+ H NEGATIVE Urine Urobilinogen 4 H NORMAL MG/DL Urine Leukocyte Esterase 3+ H NEGATIVE Urine RBC (Auto) 4+ H NEGATIVE Urine RBC 5-10 H /HPF Urine WBC >100 H /HPF Urine Squamous Epithelial Cells 2-5 /HPF Urine Crystals NONE /LPF Urine Bacteria MODERATE H /HPF Urine Casts NONE /LPF Urine Mucus NEGATIVE /LPF Urine Culture Indicated YES White Blood Count 8.9 4.3-11.0 10^3/uL Red Blood Count 3.99 L 4.35-5.85 10^6/uL Hemoglobin 12.2 11.5-16.0 G/DL Hematocrit 35 35-52 % Mean Corpuscular Volume 89 80-99 FL Mean Corpuscular Hemoglobin 31 25-34 PG Mean Corpuscular Hemoglobin Concent 35 32-36 G/DL Red Cell Distribution Width 13.3 10.0-14.5 % Platelet Count 236 130-400 10^3/uL Mean Platelet Volume 10.4 7.4-10.4 FL Neutrophils (%) (Auto) 97 H 42-75 % Lymphocytes (%) (Auto) 2 L 12-44 % Monocytes (%) (Auto) 1 0-12 % Eosinophils (%) (Auto) 0 0-10 % Basophils (%) (Auto) 0 0-10 % Neutrophils # (Auto) 8.7 H 1.8-7.8 X 10^3 Lymphocytes # (Auto) 0.1 L 1.0-4.0 X 10^3 Monocytes # (Auto) 0.1 0.0-1.0 X 10^3 Eosinophils # (Auto) 0.0 0.0-0.3 10^3/uL Basophils # (Auto) 0.0 0.0-0.1 10^3/uL Neutrophils % (Manual) 87 % Lymphocytes % (Manual) 2 % Monocytes % (Manual) 2 % Band Neutrophils 9 % Toxic Granulation 1+ Dohle Bodies SLIGHT Blood Morphology Comment NORMAL Prothrombin Time 15.5 H 12.2-14.7 SEC INR Comment 1.2 0.8-1.4 Activated Partial Thromboplast Time 37 H 24-35 SEC Sodium Level 137 135-145 MMOL/L Potassium Level 3.4 L 3.6-5.0 MMOL/L Chloride Level 108 H 98-107 MMOL/L Carbon Dioxide Level 18 L 21-32 MMOL/L Anion Gap 11 5-14 MMOL/L Blood Urea Nitrogen 12 7-18 MG/DL Creatinine 0.94 0.60-1.30 MG/DL Estimat Glomerular Filtration Rate > 60 BUN/Creatinine Ratio 13 Glucose Level 131 H 70-105 MG/DL Lactic Acid Level 1.28 0.50-2.00 MMOL/L Calcium Level 8.9 8.5-10.1 MG/DL Corrected Calcium 8.9 8.5-10.1 MG/DL Total Bilirubin 1.0 0.1-1.0 MG/DL Aspartate Amino Transf (AST/SGOT) 40 H 5-34 U/L Alanine Aminotransferase (ALT/SGPT) 33 0-55 U/L Alkaline Phosphatase 87 40-136 U/L Total Protein 7.1 6.4-8.2 GM/DL Albumin 4.0 3.2-4.5 GM/DL My Orders Orders - TAMERA ZAVALA Ketorolac Injection (Toradol Injection) (12/23/18 22:45) Ondansetron Injection (Zofran Injectio (12/23/18 22:45) Ed Iv/Invasive Line Start (12/23/18 22:37) Ns Iv 1000 Ml (Sodium Chloride 0.9%) (12/23/18 22:37) Cbc With Automated Diff (12/23/18 22:37) Comprehensive Metabolic Panel (12/23/18 22:37) Blood Culture (12/23/18 22:37) Sputum Culture (12/23/18 22:37) Urinalysis (12/23/18 22:37) Urine Culture (12/23/18 22:37) Protime With Inr (12/23/18 22:37) Partial Thromboplastin Time (12/23/18 22:37) Chest 1 View, Ap/Pa Only (12/23/18 22:37) Ed Iv/Invasive Line Start (12/23/18 22:37) Ed Iv/Invasive Line Start (12/23/18 22:37) Vital Signs Adult Sepsis Patie Q15M (12/23/18 22:37) O2 (12/23/18 22:37) Remove Rings In Anticipation O (12/23/18 22:37) Lactic Acid Analyzer (12/23/18 22:37) Ns Iv 1000 Ml (Sodium Chloride 0.9%) (12/23/18 22:37) Ceftriaxone For Iv Use (Rocephin For I (12/23/18 22:45) Iohexol Injection (Omnipaque 350 Mg/Ml 1 (12/23/18 23:00) Ns (Ivpb) (Sodium Chloride 0.9% Ivpb Bag (12/23/18 23:00) Urine Culture (12/23/18 22:42) Manual Differential (12/23/18 22:53) Urine Bedside (12/23/18 23:11) Ct Abd/Pelvis Wo(Kidney Stone) (12/23/18 23:12) Acetaminophen Tablet (Tylenol Tablet) (12/24/18 00:00) Medications Given in ED Current Medications Medications Dose Ordered Sig/Arsenio Route Start Time Stop Time Status Last Admin Dose Admin Acetaminophen 1,000 mg ONCE ONCE PO 12/24/18 00:00 12/24/18 00:01 DC 12/24/18 00:02 1,000 MG Ceftriaxone Sodium 1000 mg/ Sterile Water 10 ml @ 200 mls/hr ONCE ONCE IV 12/23/18 22:45 12/23/18 22:47 DC 12/23/18 23:05 200 MLS/HR Ketorolac Tromethamine 30 mg ONCE ONCE IVP 12/23/18 22:45 12/23/18 22:46 DC 12/23/18 22:56 30 MG Ondansetron HCl 4 mg ONCE ONCE IVP 12/23/18 22:45 12/23/18 22:46 DC 12/23/18 22:56 4 MG Vital Signs/I&O 12/24/18 00:00 Intake Total 1010 ml Balance 1010 ml Capillary Refill : Progress Note : Time: 00:25 Progress Note The patient has a low blood pressure with a map in the 50s to 70s range. However she was mildly tachycardic when she came here but after the IV fluids her heart rate in the 70s and despite this her blood pressure has not really improved any. She was placed in the Trendelenburg and this also did not improve her blood pressure. With her low heart rate, no white count and lactate I suspect that this may be her resting blood pressure range. She is a fairly slight build approximately 5 foot 1 patient. Patient's pain is much improved. She is mentating well. We used the language line and again speak with her and will try and see if the primary care team will take her on despite not having any critical care beds available here. If not we would have to send her out as we are on ICU and ICU stepdown diversion. Suspect strongly that this is not construction representative of septic shock. Diagnostic Imaging Diagonstic Imaging: CT Plain Films/CT/US/NM/MRI: abdomen, pelvis Comments Evaluation limited by absence of IV contrast enhancement. Studies initially degraded by persistent patient motion. Extensive right perinephric inflammatory changes. There is question of mild dilatation of the right renal collecting system throw the degree of motion limits evaluation. Findings may reflect a recently passed stone or a pyelonephritis. Urinary bladder is incompletely distended but demonstrates mild wall thickening with reticulation. Remaining unenhanced solid abdominal organs demonstrate no definitive acute findings. Negative for lower GI tract obstructi on or pneumatosis. Negative for pneumoperitoneum. Negative for appendicitis. Reviewed: Reviewed Night Hawk Study, Reviewed by Me Diagonstic Imaging: Xray Plain Films/CT/US/NM/MRI: chest (1v) Comments No acute cardiopulmonary processes noted on one view chest x-ray Reviewed: Reviewed by Me Departure Communication (Admissions) Time/Spoke to Admitting Phy: 00:36 Discussed the case with Dr. Navarro and we discussed the patient's low blood pressure in the absence of tachycardia fever white count or elevated lactate and the patient was improving although his friends and that we do not think the patient needs vasopressors at this time. She agrees with this plan to keep the patient on the floor and if the patient worsens then we'll have to transfer out. She agrees with antibiotic selection fluids and labs. Impression Primary Impression: Pyelonephritis Additional Impression: Sepsis Qualified Codes: A41.9 - Sepsis, unspecified organism Disposition: ADMITTED INPATIENT Condition: Stable Admissions Decision to Admit Reason: Admit from ER (General) Decision to Admit/Date: Dec 24, 2018 Time/Decision to Admit Time: 00:30 Departure-Patient Inst. Referrals: LIV FREEMAN DO (PCP) Primary Care Physician PRAKASH ANGEL APRN (Family) Primary Care Physician TAMERA ZAVALA Dec 23, 2018 22:40 POS
[2018-12-23] MEDS ORDERED: KETOROLAC 30 MG/ML VIAL IVP ONE (22:45)
[2018-12-23] MEDS ORDERED: cefTRIAXone FOR IV USE 1,000 MG in WATER (STERILE) FOR INJECTION 10 ML IV ONE (22:45)
[2018-12-23] MEDS ORDERED: ONDANSETRON 4 MG/2 ML (SDV) Z0FRAN IVP ONE (22:45)
[2018-12-23 22:58] LABS: BILIRUBIN,URINE 1+ (NEGATIVE); GLUCOSE, URINE (UA) NEGATIVE (NEGATIVE); KETONES,URINE NEGATIVE (NEGATIVE); LEUKOCYTE ESTERASE ,URINE 3+ (NEGATIVE); NITRITE,URINE POSITIVE (NEGATIVE); PH,URINE 5 (5-9); PROTEIN,URINE 2+ (NEGATIVE)
[2018-12-23] MEDS ORDERED: IOHEXOL 350 MG/ML 100 ML (OMNIPAQUE 350) VIAL IV ONE (23:00)
[2018-12-23] MEDS ORDERED: NS 100 ML (IVPB) BAG IV ONE (23:00)
[2018-12-23 23:04] LABS: BACTERIA,URINE MODERATE /HPF; CLARITY,URINE CLEAR; COLOR,URINE AMBER; WBC,URINE >100 /HPF
[2018-12-23 23:09] LABS: BASOPHILS % (AUTO) 0 % (0-10); EOSINOPHILS % (AUTO) 0 % (0-10); HEMATOCRIT 35 % (35-52); HEMOGLOBIN 12.2 G/DL (11.5-16.0); LYMPHOCYTES # (AUTO) 0.1 X 10^3 (1.0-4.0); LYMPHOCYTES % (AUTO) 2 % (12-44); MEAN CORPUSCULAR HEMOGLOBIN 31 PG (25-34); MEAN CORPUSCULAR HGB CONC 35 G/DL (32-36); MEAN CORPUSCULAR VOLUME 89 FL (80-99); MEAN PLATELET VOLUME 10.4 FL (7.4-10.4); MONOCYTES # (AUTO) 0.1 X 10^3 (0.0-1.0); MONOCYTES % (AUTO) 1 % (0-12); NEUTROPHILS # (AUTO) 8.7 X 10^3 (1.8-7.8); NEUTROPHILS % (AUTO) 97 % (42-75); PLATELET COUNT 236 10^3/uL (130-400); RED CELL DISTRIBUTION WIDTH 13.3 % (10.0-14.5); WHITE BLOOD COUNT 8.9 10^3/uL (4.3-11.0)
[2018-12-23 23:21] LABS: INR 1.2 (0.8-1.4); PROTHROMBIN TIME PATIENT 15.5 SEC (12.2-14.7)
[2018-12-23 23:25] LABS: BAND NEUTROPHILS 9 %; LYMPHOCYTES % (MANUAL) 2 %; MONOCYTES % (MANUAL) 2 %; NEUTROPHILS % (MANUAL) 87 %; RBC MORPH NORMAL; TOXIC GRANULATION/VACUOLAZATIO 1+
[2018-12-23 23:28] LABS: ALANINE AMINOTRANSFERASE 33 U/L (0-55); ALKALINE PHOSPHATASE 87 U/L (40-136); BUN/CREATININE RATIO 13; CALCIUM 8.9 MG/DL (8.5-10.1); CARBON DIOXIDE 18 MMOL/L (21-32); CHLORIDE 108 MMOL/L (98-107); CREATININE SERUM 0.94 MG/DL (0.60-1.30); GFR ESTIMATED > 60; GLUCOSE 131 MG/DL (70-105); POTASSIUM 3.4 MMOL/L (3.6-5.0); SODIUM 137 MMOL/L (135-145); TOTAL PROTEIN 7.1 GM/DL (6.4-8.2)
[2018-12-24] VITALS (18 sets, daily range): BP systolic 77–116; BP diastolic 49–80
[2018-12-24] MEDS ORDERED: ACETAMINOPHEN 500 MG TAB (TYLENOL) PO ONE
--- NOTE | 2018-12-24 01:59 | NUR ---
DR. ZAVALA NOTIFIED AND AWARE OF SBP <[address] ZAVALA DISCUSSED WITH DR. GÓMEZ AND PARAMATERS ON ED BRIDGE ORDERS WRITTEN.
[2018-12-24] MEDS ORDERED: ONDANSETRON 4 MG/2 ML (SDV) Z0FRAN IV PRN (02:15)
[2018-12-24] MEDS: LACTATED RINGERS 1,000 ML IV SCH ×3 (02:26→18:45)
--- NOTE | 2018-12-24 06:03 | Diagnostic Imaging Report ---
PROCEDURE: CT urinary tract, rule out kidney stone. TECHNIQUE: Multiple contiguous axial images were obtained through the abdomen and pelvis without the use of intravenous contrast. Auto Exposure Controls were utilized during the CT exam to meet ALARA standards for radiation dose reduction. INDICATION: Abdominal pain. COMPARISON: 07/07/2018. FINDINGS: Calcified granuloma in the right lung base. The liver, gallbladder, pancreas, spleen, adrenals, left kidney, left collecting system and bladder are unremarkable on this noncontrast exam. Normal appendix. There is moderate right perinephric stranding. No hi hydronephrosis or obstructing lesions are identified. No renal stones. No free intraperitoneal air or fluid. No lymphadenopathy. No evidence of bowel obstruction. Benign bone island in the left femoral head. Limbus L5 vertebral body. No acute osseous findings. IMPRESSION: Right perinephric stranding without an obstructing lesion or renal stone identified. Findings may seen with a recently passed renal stone versus a urinary tract infection. Please correlate with urinalysis. Dictated by: Dictated on workstation # [id number]
--- NOTE | 2018-12-24 06:30 | Diagnostic Imaging Report ---
EXAM: CHEST 1 VIEW, AP/PA ONLY INDICATION: Abdominal pain. COMPARISON: None. FINDINGS: Normal heart size and central pulmonary vascularity. No focal pulmonary opacity, pleural effusion or pneumothorax. No acute osseous findings. IMPRESSION: Negative chest. Dictated by: Dictated on workstation # [id number]
[2018-12-24 06:32] LABS: BASOPHILS % (AUTO) 0 % (0-10); EOSINOPHILS % (AUTO) 0 % (0-10); HEMATOCRIT 30 % (35-52); HEMOGLOBIN 10.1 G/DL (11.5-16.0); LYMPHOCYTES # (AUTO) 1.2 X 10^3 (1.0-4.0); LYMPHOCYTES % (AUTO) 8 % (12-44); MEAN CORPUSCULAR HEMOGLOBIN 31 PG (25-34); MEAN CORPUSCULAR HGB CONC 34 G/DL (32-36); MEAN CORPUSCULAR VOLUME 90 FL (80-99); MEAN PLATELET VOLUME 10.7 FL (7.4-10.4); MONOCYTES # (AUTO) 1.1 X 10^3 (0.0-1.0); MONOCYTES % (AUTO) 7 % (0-12); NEUTROPHILS # (AUTO) 13.7 X 10^3 (1.8-7.8); NEUTROPHILS % (AUTO) 85 % (42-75); PLATELET COUNT 181 10^3/uL (130-400); RED CELL DISTRIBUTION WIDTH 13.4 % (10.0-14.5); WHITE BLOOD COUNT 16.1 10^3/uL (4.3-11.0)
[2018-12-24 06:50] LABS: ALANINE AMINOTRANSFERASE 51 U/L (0-55); ALKALINE PHOSPHATASE 94 U/L (40-136); BILIRUBIN,TOTAL 0.8 MG/DL (0.1-1.0); BUN/CREATININE RATIO 14; CALCIUM 7.5 MG/DL (8.5-10.1); CARBON DIOXIDE 18 MMOL/L (21-32); CHLORIDE 112 MMOL/L (98-107); CREATININE SERUM 0.78 MG/DL (0.60-1.30); GFR ESTIMATED > 60; GLUCOSE 135 MG/DL (70-105); POTASSIUM 3.6 MMOL/L (3.6-5.0); SODIUM 138 MMOL/L (135-145); TOTAL PROTEIN 5.2 GM/DL (6.4-8.2)
[2018-12-24 06:53] LABS: BAND NEUTROPHILS 9 %; LYMPHOCYTES % (MANUAL) 4 %; MONOCYTES % (MANUAL) 3 %; NEUTROPHILS % (MANUAL) 84 %; RBC MORPH NORMAL
[2018-12-24] MEDS ORDERED: CATHETER FLUSH 10 ML SYR IV PRN (07:30)
[2018-12-24] MEDS ORDERED: LACTATED RINGERS 1,000 ML IV ONE ×2 (07:45→11:00)
--- NOTE | 2018-12-24 07:46 | NUR ---
B/P 77/49, HR 55, TEMP 100.6. DR. GÓMEZ NOTIFIED. ORDER REC'D. L/R BOLUS INITIATED.
[2018-12-24] MEDS: ACETAMINOPHEN 500 MG TAB (TYLENOL) PO PRN ×2 (08:12→23:18)
--- NOTE | 2018-12-24 09:30 | NUR ---
DR. POND HERE AND NOTIFED CURRENT B/P 78/52 AND HR 50. SPOKE WITH PT VIA LANGUAGE LINE AND NOTIFIED OF PLANS TO TRANSFER TO ICU. AWAITING ICU BED. NS BOLUS STARTED. IV TORADOL FOR PAIN.
[2018-12-24] MEDS: NS IV 1000 ML 1,000 ML IV SCH ×2 (09:51→11:10)
[2018-12-24] MEDS: KETOROLAC 15 MG/ML VIAL IVP PRN (09:51)
[2018-12-24] MEDS ORDERED: LORazepam INJ 2 MG/ML (ATIVAN) VIAL ONE (10:13)
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
--- NOTE | 2018-12-24 10:41 | NUR ---
TRANSFERRED TO ICU PER BED. BROTHER ROMAIN NOTIFIED OF CHANGE IN CONDITION AND TRANSFER TO ICU.
--- NOTE | 2018-12-24 10:42 | History & Physical-Hospitalist ---
History of Present Illness HPI/Chief Complaint Chief complaint: Pyelonephritis History of present illness: This is a 38-year-old female [facility] who was admitted last night for acute pyelonephritis and fever. Nurse reported to me she was experiencing significant hypotension of systolic 70 and IV fluids have been given but when I assessed her she appeared to be in moderate distress immediately or criteria for severe sepsis so she was admitted to the ICU consult with Dr. Sylvester and I follow the sepsis protocol with IV fluids. She was given Rocephin. I did communicate with her with the language translation line. Source: patient Exam Limitations: no limitations Date Seen 12/24/18 Time Seen by a Provider: 09:30 Attending Physician Deana Navarro MD PCP Ani Longoria DO Referring Physician Date of Admission Dec 24, 2018 at 00:45 Home Medications & Allergies Home Medications Reviewed patient Home Medication Reconciliation performed by pharmacy medication reconciliations certified medical technician and/or nursing. Patients Allergies have been reviewed. Allergies Allergies Coded Allergies No Known Drug Allergies (Unverified07/15/12) Past Bwyvsrt-Cdattn-Etxdwb Hx Past Med/Social Hx: Reviewed Nursing Past Med/Soc Hx, Reviewed and Corrections made Patient Social History Marrital Status: single Alcohol Use: Denies Use Recreational Drug Use: No Smoking Status: Never a Smoker Recent Foreign Travel: No Contact w/other who traveled: No Recent Hopitalizations: No Recent Infectious Disease Expo: No Seasonal Allergies Seasonal Allergies: No Past Medical History Reproductive: No Sexually Transmitted Disease: Yes History of Blood Disorders: No Family History No Pertinent Family Hx Review of Systems Constitutional: see HPI, dizziness, malaise, weakness Musculoskeletal: back pain Physical Exam Physical Exam Vital Signs Vital Signs - First Documented 12/23/18 12/24/18 22:30 01:59 Temp 40.5 Pulse 102 Resp 16 B/P (MAP) 103/56 (72) Pulse Ox 96 O2 Delivery Room Air Capillary Refill : Less Than 3 SecondsLess Than 3 Seconds Height, Weight, BMI Height: 5'0.24" Weight: 130lbs. 0.0oz. 58.389976dl; 23.19 BMI Method:Stated General Appearance: Anxious, Moderate Distress, Other (acutely ill, ashen) HEENT: PERRL/EOMI, TMs Normal, Normal ENT Inspection, Pharynx Normal, Moist Mucous Membranes Neck: Full Range of Motion, Normal Inspection, Non Tender Respiratory: Lungs Clear Cardiovascular: Regular Rate, Rhythm Extremity: Normal Capillary Refill, Normal Inspection, Normal Range of Motion, Non Tender, No Calf Tenderness, No Pedal Edema Neurologic/Psychiatric: Alert, Oriented x3, No Motor/Sensory Deficits, Normal Mood/Affect Results Results/Procedures Labs Laboratory Tests 12/23/18 22:53 12/24/18 06:15 Patient resulted labs reviewed. Assessment/Plan Admission Diagnosis Assessment: Severe sepsis Acute pyelonephritis Leukocytosis Plan: Moved ICU Monitor closely Appreciate bunch breaker consultation Admission Status: Inpatient Order (span 2 midnights) Reason for Inpatient Admission: Severe sepsis Diagnosis/Problems Diagnosis/Problems (1) Severe sepsis Status: Acute (2) Pyelonephritis Status: Acute (3) Leukocytosis Status: Acute Qualifiers: Leukocytosis type: leukemoid reaction Qualified Codes: D72.823 - Leukemoid reaction Clinical Quality Measures DVT/VTE Risk/Contraindication: Risk Factor Score Per Nursin RFS Level Per Nursing on Admit: 3=High GASPER POND DO Dec 24, 2018 10:42 POS
[2018-12-24] MEDS ORDERED: NS IV 1000 ML 1,769.01 ML IV ONE (10:45)
[2018-12-24] MEDS: HYDROCORTISONE 100 MG/2 ML (Solu-CORTEF) VIAL IV SCH ×2 (11:10→18:45)
--- NOTE | 2018-12-24 12:31 | Diagnostic Imaging Report ---
INDICATION: Evaluate for hydronephrosis. Liver is upper limits of normal size approximately 18 cm. No discrete liver mass is detected. The portal vein is patent and shows normal direction of flow. Gallbladder is contracted, limiting evaluation. No definite stones or sludge are identified. There is no biliary ductal dilatation. The pancreas is unremarkable. Spleen is normal in size at 10.7 cm. There is a small accessory spleen measuring approximately 2.9 cm. Aorta in the proximal and mid aspect is nonaneurysmal. Distal aspect was not visualized due to bowel gas. IVC is patent. Kidneys are without evidence of calculi or hydronephrosis. There is no ascites. IMPRESSION: Contracted gallbladder, limiting evaluation. Study is otherwise unremarkable. There is no evidence of hydronephrosis. Dictated by: Dictated on workstation # [id number]
[2018-12-24] MEDS: ENOXAPARIN 40 MG/0.4 ML (LOVENOX) SYR SC SCH (15:46)
[2018-12-24] MEDS ORDERED: cefTRIAXone 1,000 MG IV (ROCEPHIN) VIAL ONE (23:06)
[2018-12-24] MEDS ORDERED: WATER (STERILE) FOR INJECTION 10 ML ONE (23:06)
[2018-12-24] MEDS: cefTRIAXone 1,000 MG/SWFI 10 ML IV PUSH IV SCH ×2 (23:18)
[2018-12-25] VITALS (16 sets, daily range): BP systolic 95–127; BP diastolic 61–95
[2018-12-25] MEDS: LACTATED RINGERS 1,000 ML IV SCH ×5 (01:31→23:17)
[2018-12-25] MEDS: HYDROCORTISONE 100 MG/2 ML (Solu-CORTEF) VIAL IV SCH (01:32)
[2018-12-25] MEDS: KETOROLAC 15 MG/ML VIAL IVP PRN ×3 (02:03→18:51)
[2018-12-25] MEDS ORDERED: ANTACID SUSP 30 ML UDC (MYLANTA) ONE (03:18)
[2018-12-25] MEDS ORDERED: LIDOCAINE 2% VISCOUS 15 ML UDC ONE (03:18)
[2018-12-25] MEDS ORDERED: fentaNYL INJECTION 100 MCG/2 ML AMP ONE (03:19)
[2018-12-25] MEDS ORDERED: fentaNYL INJECTION 100 MCG/2 ML AMP IV ONE (03:30)
--- NOTE | 2018-12-25 03:48 | NUR ---
0236-- E-ICU NOTIFIED DUE TO PATIENT COMPLAINING OF "SQUEEZING" EPIGASTRIC PAIN DESPITE USE OF PAIN MEDICATION. NEW ORDERS RECEIVED.
[2018-12-25 04:02] LABS: BASOPHILS % (AUTO) 0 % (0-10); EOSINOPHILS % (AUTO) 0 % (0-10); HEMATOCRIT 34 % (35-52); HEMOGLOBIN 11.6 G/DL (11.5-16.0); LYMPHOCYTES # (AUTO) 0.7 X 10^3 (1.0-4.0); LYMPHOCYTES % (AUTO) 4 % (12-44); MEAN CORPUSCULAR HEMOGLOBIN 31 PG (25-34); MEAN CORPUSCULAR HGB CONC 34 G/DL (32-36); MEAN CORPUSCULAR VOLUME 91 FL (80-99); MEAN PLATELET VOLUME 11.9 FL (7.4-10.4); MONOCYTES # (AUTO) 0.7 X 10^3 (0.0-1.0); MONOCYTES % (AUTO) 4 % (0-12); NEUTROPHILS # (AUTO) 17.9 X 10^3 (1.8-7.8); NEUTROPHILS % (AUTO) 93 % (42-75); PLATELET COUNT 218 10^3/uL (130-400); RED CELL DISTRIBUTION WIDTH 13.8 % (10.0-14.5); WHITE BLOOD COUNT 19.3 10^3/uL (4.3-11.0)
[2018-12-25] MEDS: fentaNYL INJECTION 100 MCG/2 ML AMP IV PRN ×3 (04:03→19:48)
[2018-12-25 04:07] LABS: ALANINE AMINOTRANSFERASE 51 U/L (0-55); BUN/CREATININE RATIO 11; CALCIUM 8.1 MG/DL (8.5-10.1); CARBON DIOXIDE 17 MMOL/L (21-32); CHLORIDE 112 MMOL/L (98-107); CREATININE SERUM 0.72 MG/DL (0.60-1.30); GFR ESTIMATED > 60; GLUCOSE 165 MG/DL (70-105); LIPASE 9 U/L (8-78); MAGNESIUM 1.9 MG/DL (1.6-2.4); POTASSIUM 3.9 MMOL/L (3.6-5.0); SODIUM 140 MMOL/L (135-145)
--- NOTE | 2018-12-25 05:56 | Pulmonary Progress Note ---
Subjective Time Seen by a Provider: 06:39 Subjective/Events-last exam Pt appears to be doing better. Sepsis Event Evaluation Height, Weight, BMI Height: 5'0.24" Weight: 130lbs. 0.0oz. [id number]; 23.19 BMI Method:Stated Focused Exam Lactate Level 12/23/18 22:53: Lactic Acid Level 1.28 12/24/18 10:25: Lactic Acid Level 1.25 12/25/18 02:33: Lactic Acid Level 1.66 Time of Focused Exam: 00:33 Lactic Acid Level Laboratory Tests Test 12/25/18 02:33 Lactic Acid Level 1.66 MMOL/L (0.50-2.00) Exam Exam Vital Signs Date Time Temp Pulse Resp B/P (MAP) Pulse Ox O2 Delivery O2 Flow Rate FiO2 12/25/18 05:00 43 16 97/61 (73) 95 Room Air 12/25/18 04:00 97 Room Air 12/25/18 04:00 36.8 12/25/18 04:00 44 21 102/61 (75) 95 Room Air 12/25/18 03:00 43 18 127/83 (98) 98 Room Air 12/25/18 02:00 52 15 113/95 (101) 97 Room Air 12/25/18 01:00 50 12/25/18 01:00 44 19 111/63 (79) 95 Room Air 12/25/18 00:00 99 Room Air 12/25/18 00:00 43 15 111/68 (82) 96 Room Air 12/25/18 00:00 36.0 12/24/18 23:00 46 18 109/62 (78) 96 Room Air 12/24/18 22:00 48 16 115/62 (79) 97 Room Air 12/24/18 21:00 48 20 113/70 (84) 97 Room Air 12/24/18 20:00 99 Room Air 12/24/18 20:00 36.4 12/24/18 20:00 43 24 111/79 (90) 98 Room Air 12/24/18 19:00 44 16 116/80 (92) 97 Room Air 12/24/18 19:00 50 12/24/18 18:00 45 25 106/79 (88) 98 Room Air 12/24/18 17:00 49 13 104/64 (77) 96 Room Air 12/24/18 16:00 36.3 12/24/18 16:00 97 Room Air 12/24/18 16:00 46 22 106/70 (82) 94 Room Air 12/24/18 15:00 63 15 99/60 (73) Room Air 12/24/18 14:00 54 21 96/64 (75) 93 Room Air 12/24/18 13:00 53 24 98/64 (75) 91 Room Air 12/24/18 13:00 66 12/24/18 12:00 36.8 12/24/18 12:00 53 15 106/64 (78) 91 Room Air 12/24/18 11:00 48 15 87/62 (70) 98 Room Air 12/24/18 10:45 49 87/57 (67) 97 Room Air 12/24/18 10:35 52 12/24/18 10:35 54 12/24/18 10:30 97 Room Air 12/24/18 09:00 37.3 50 16 78/52 (61) 95 Room Air 12/24/18 08:00 38.1 55 16 77/49 (58) 95 Room Air 12/24/18 08:00 95 Room Air I & O 12/25/18 07:00 Intake Total 7165 ml Output Total 950 ml Balance 6215 ml Height & Weight Height: 5'0.24" Weight: 130lbs. 0.0oz. 58.961411kv; 23.19 BMI Method:Stated General Appearance: Anxious, Mild Distress, Other (acutely ill, ashen) HEENT: PERRL/EOMI, TMs Normal, Normal ENT Inspection, Pharynx Normal, Moist Mucous Membranes Neck: Full Range of Motion, Normal Inspection, Non Tender Respiratory: Lungs Clear Cardiovascular: Regular Rate, Rhythm Capillary Refill: Less Than 3 Seconds (and distal small that) Peripheral Pulses: 2+ Radial Pulses (R), 2+ Radial Pulses (L) Gastrointestinal: normal bowel sounds, non tender, soft, no organomegaly Extremity: Normal Capillary Refill, Normal Inspection, Normal Range of Motion, Non Tender, No Calf Tenderness, No Pedal Edema Neurologic/Psychiatric: Alert, Oriented x3, No Motor/Sensory Deficits, Normal Mood/Affect Results Lab Laboratory Tests 12/23/18 22:53 12/24/18 06:15 12/25/18 02:33 Assessment/Plan Assessment/Plan UTI with sepsis -Continue Rocephin Hypotension - improved - IVF Metabolic acidosis -IVF -Monitor Worsening leukocytosis probably secondary to solucortef Anemia -Monitor WINDY DANG DO Dec 25, 2018 05:56 POS
[2018-12-25] MEDS ORDERED: KCL 20 MEQ TAB (K-DUR) PO SCH (06:00)
[2018-12-25] MEDS ORDERED: POTASSIUM CL 10MEQ/50ML IVPB 50 ML IV SCH (06:00)
[2018-12-25] MEDS ORDERED: MAGNESIUM 1 GM/100 ML IVPB 100 ML IV SCH (06:00)
[2018-12-25 06:24] LABS: AMYLASE 27 U/L (25-125); LIPASE 9 U/L (8-78)
[2018-12-25] MEDS: inSUlin ASPART (NovoLOG) 1 UNIT/0.01 ML (CHARGE PER UNIT) SC SCH ×3 (06:51→16:18)
[2018-12-25] MEDS ORDERED: PANTOPRAZOLE 40 MG (PROTONIX) TAB PO SCH (09:00)
--- NOTE | 2018-12-25 12:24 | NUR ---
Report called to RAEANN Ragland who will assume pt care at this time. VSS at time of transfer. Pt currently eating lunch. Will await pt finishing to transfer. NT to assist pt with transfer at this time.
--- NOTE | 2018-12-25 13:03 | NUR ---
This RN assumed patient care at this time
[2018-12-25] MEDS: ACETAMINOPHEN 500 MG TAB (TYLENOL) PO PRN (13:18)
[2018-12-25] MEDS: ENOXAPARIN 40 MG/0.4 ML (LOVENOX) SYR SC SCH (13:21)
--- NOTE | 2018-12-25 13:25 | NUR ---
patient care transferred to Leatha CARY
--- NOTE | 2018-12-25 13:27 | Progress Note - Hospitalist ---
Subjective HPI/CC On Admission Date Seen by Provider: Dec 25, 2018 Time Seen by Provider: 11:30 Chief complaint: Pyelonephritis History of present illness: This is a 38-year-old female [facility] who was admitted last night for acute pyelonephritis and fever. Nurse reported to me she was experiencing significant hypotension of systolic 70 and IV fluids have been given but when I assessed her she appeared to be in moderate distress immediately or criteria for severe sepsis so she was admitted to the ICU consult with Dr. Sylvester and I follow the sepsis protocol with IV fluids. She was given Rocephin. I did communicate with her with the language translation line. Subjective/Events-last exam Hypotension much improved IV fluids have improved status Rocephin maintained Urine culture shows gram-negative niranjan Blood cultures no growth to date Updated patient and family Reports pain mid epigastric given fentanyl and Toradol Will monitor closely and transfer to fourth floor Review of Systems General: Fatigue Gastrointestinal: Abdominal Pain Focused Exam Lactate Level 12/23/18 22:53: Lactic Acid Level 1.28 12/24/18 10:25: Lactic Acid Level 1.25 12/25/18 02:33: Lactic Acid Level 1.66 Time of Focused Exam: 00:33 Objective Exam Vital Signs Vital Signs Date Time Temp Pulse Resp B/P (MAP) Pulse Ox O2 Delivery O2 Flow Rate FiO2 12/25/18 13:00 36.7 52 16 101/67 (78) 98 Room Air Capillary Refill : Less Than 3 SecondsLess Than 3 Seconds General Appearance: No Apparent Distress, WD/WN, Anxious Respiratory: Chest Non Tender, Lungs Clear, Normal Breath Sounds, No Accessory Muscle Use, No Respiratory Distress Cardiovascular: Regular Rate, Rhythm, No Edema, No Gallop, No JVD, No Murmur, Normal Peripheral Pulses Gastrointestinal: Tenderness Neurologic/Psychiatric: Alert, Oriented x3, No Motor/Sensory Deficits, Normal Mood/Affect Results/Procedures Lab Laboratory Tests 12/25/18 02:33 Patient resulted labs reviewed. Assessment/Plan Assessment and Plan Assess & Plan/Chief Complaint Assessment: Severe sepsis with hypotension requiring ICU transfer and aggressive IV fluids Acute pyelonephritis Plan: Transfer to fourth floor IV fluid Pain medication IV antibiotics Follow up on urine culture Diagnosis/Problems Diagnosis/Problems (1) Severe sepsis Status: Acute (2) Pyelonephritis Status: Acute (3) Leukocytosis Status: Acute Qualifiers: Leukocytosis type: leukemoid reaction Qualified Codes: D72.823 - Leukemoid reaction Clinical Quality Measures DVT/VTE Risk/Contraindication: Risk Factor Score Per Nursin RFS Level Per Nursing on Admit: 3=High GASPER POND DO Dec 25, 2018 13:27 POS
--- NOTE | 2018-12-25 19:35 | NUR ---
DR POND NOTIFIED THAT PT C/O PAIN UNDER RIB CAGE AT AN 8 AFTER SHE RECEIVED TORADOL AT 1850. DR POND ORDERED PROTONIX 40 MG DAILY AND CARAFATE AC HS.
[2018-12-25] MEDS: SUCRALFATE 1 GM (CARAFATE) TAB PO SCH (20:51)
[2018-12-25] MEDS: PANTOPRAZOLE 40 MG (PROTONIX) TAB PO SCH (21:00)
[2018-12-25] MEDS ORDERED: cefTRIAXone 1,000 MG IV (ROCEPHIN) VIAL ONE (23:10)
[2018-12-25] MEDS ORDERED: WATER (STERILE) FOR INJECTION 10 ML ONE (23:10)
[2018-12-25] MEDS: cefTRIAXone 1,000 MG/SWFI 10 ML IV PUSH IV SCH ×2 (23:16)
[2018-12-26] MEDS: KETOROLAC 15 MG/ML VIAL IVP PRN ×2 (01:09→09:27)
[2018-12-26] MEDS: ACETAMINOPHEN 500 MG TAB (TYLENOL) PO PRN ×2 (04:07→20:39)
--- NOTE | 2018-12-26 05:10 | NUR ---
DR POND NOTIFIED THAT PT CONTINUES TO HAVE EPIGASTRIC PAIN THAT IS NOT RELIEVED WITH PAIN MEDS AND THE NEW ORDERS FROM LAST NIGHT. SHE ORDERED CONSULT WITH DR HAYES. THIS NURSE PAPER MACHINE TENDER NOTIFIED HIM AT 0515.
[2018-12-26] MEDS: LACTATED RINGERS 1,000 ML IV SCH ×2 (05:19→12:09)
[2018-12-26 05:21] LABS: BASOPHILS % (AUTO) 0 % (0-10); EOSINOPHILS % (AUTO) 0 % (0-10); HEMATOCRIT 31 % (35-52); HEMOGLOBIN 10.4 G/DL (11.5-16.0); LYMPHOCYTES % (AUTO) 18 % (12-44); MEAN CORPUSCULAR HGB CONC 34 G/DL (32-36); MEAN CORPUSCULAR VOLUME 91 FL (80-99); MEAN PLATELET VOLUME 11.6 FL (7.4-10.4); MONOCYTES # (AUTO) 1.1 X 10^3 (0.0-1.0); MONOCYTES % (AUTO) 10 % (0-12); NEUTROPHILS % (AUTO) 72 % (42-75); PLATELET COUNT 211 10^3/uL (130-400); RED CELL DISTRIBUTION WIDTH 13.6 % (10.0-14.5); WHITE BLOOD COUNT 11.1 10^3/uL (4.3-11.0)
[2018-12-26 05:33] LABS: MEAN CORPUSCULAR HEMOGLOBIN 30 PG (25-34)
[2018-12-26 05:50] LABS: ALANINE AMINOTRANSFERASE 33 U/L (0-55); ALBUMIN 2.6 GM/DL (3.2-4.5); ALKALINE PHOSPHATASE 71 U/L (40-136); BILIRUBIN,TOTAL 0.3 MG/DL (0.1-1.0); BUN/CREATININE RATIO 21; CALCIUM 7.7 MG/DL (8.5-10.1); CARBON DIOXIDE 21 MMOL/L (21-32); CHLORIDE 111 MMOL/L (98-107); CREATININE SERUM 0.73 MG/DL (0.60-1.30); GFR ESTIMATED > 60; GLUCOSE 90 MG/DL (70-105); PHOSPHORUS 1.8 MG/DL (2.3-4.7); POTASSIUM 3.7 MMOL/L (3.6-5.0); SODIUM 138 MMOL/L (135-145); TOTAL PROTEIN 4.8 GM/DL (6.4-8.2)
[2018-12-26] MEDS: SUCRALFATE 1 GM (CARAFATE) TAB PO SCH ×4 (06:05→20:38)
--- NOTE | 2018-12-26 07:06 | Pulmonary Progress Note ---
Subjective Time Seen by a Provider: 07:05 Subjective/Events-last exam Pt appears to be doing better. Sepsis Event Evaluation Height, Weight, BMI Height: 5'0.24" Weight: 130lbs. 0.0oz. 58.452650xt; 23.19 BMI Method:Stated Focused Exam Lactate Level 12/23/18 22:53: Lactic Acid Level 1.28 12/24/18 10:25: Lactic Acid Level 1.25 12/25/18 02:33: Lactic Acid Level 1.66 Time of Focused Exam: 00:33 Exam Exam Vital Signs Date Time Temp Pulse Resp B/P (MAP) Pulse Ox O2 Delivery O2 Flow Rate FiO2 12/25/18 20:00 Room Air 12/25/18 19:32 36.6 46 16 95/62 (73) 100 Room Air 12/25/18 15:55 36.6 48 16 98/63 (75) 100 Room Air 12/25/18 13:00 36.7 52 16 101/67 (78) 98 Room Air 12/25/18 12:15 50 12/25/18 12:00 36.6 12/25/18 12:00 Room Air 12/25/18 12:00 64 15 105/68 (80) 99 Room Air 12/25/18 11:00 51 31 117/73 (88) 99 Room Air 12/25/18 10:00 45 21 107/73 (84) 97 Room Air 12/25/18 09:00 49 25 102/63 (76) 96 Room Air 12/25/18 08:00 Room Air 12/25/18 08:00 43 30 108/68 (81) 96 Room Air I & O 12/26/18 07:00 Intake Total 3540 ml Output Total 2100 ml Balance 1440 ml Height & Weight Height: 5'0.24" Weight: 130lbs. 0.0oz. 58.397181bx; 23.19 BMI Method:Stated General Appearance: No Apparent Distress, WD/WN, Anxious HEENT: PERRL/EOMI, TMs Normal, Normal ENT Inspection, Pharynx Normal, Moist Mucous Membranes Neck: Full Range of Motion, Normal Inspection, Non Tender Respiratory: Chest Non Tender, Lungs Clear, Normal Breath Sounds, No Accessory Muscle Use, No Respiratory Distress Cardiovascular: Regular Rate, Rhythm, No Edema, No Gallop, No JVD, No Murmur, Normal Peripheral Pulses Capillary Refill: Less Than 3 Seconds (and distal small that) Peripheral Pulses: 2+ Radial Pulses (R), 2+ Radial Pulses (L) Gastrointestinal: normal bowel sounds, non tender, soft, no organomegaly Extremity: Normal Capillary Refill, Normal Inspection, Normal Range of Motion, Non Tender, No Calf Tenderness, No Pedal Edema Neurologic/Psychiatric: Alert, Oriented x3, No Motor/Sensory Deficits, Normal Mood/Affect Results Lab Laboratory Tests 12/25/18 02:33 12/26/18 04:50 Assessment/Plan Assessment/Plan UTI with sepsis -Continue Rocephin Hypotension - improved - IVF Metabolic acidosis -IVF -Monitor Anemia -Monitor I am going to sign off please call with any questions. WINDY DANG DO Dec 26, 2018 07:05 POS
[2018-12-26 08:53] VITALS: BP 92/57
--- NOTE | 2018-12-26 11:44 | Consultation - Surgery ---
[facility] [place] 12/26/18 1144: History of Present Illness History of Present Illness Patient Consulted On(mamie/time) 12/26/18 11:32 Date Seen by Provider: Dec 26, 2018 Time Seen by Provider: 11:15 History of Present Illness Alycia is 38 y/o female that was admitted to the hospital for Acute Pyelonephritis. Medical team consulted surgery due to a new finding of abdominal pain that seems to be localized to the epigastric area. Due to language barrier questions were asked through the family member and translated to the patient in the room for a brief history of the new finding of abdominal pain. Pt states that she has been having abdominal pain for the last 4months. She is not taking any medication for this pain. We discussed with her we are trying to determine if the pain she is feeling is due to the acute pyelonephritis or is actually a different pain all together. We asked the patient if there was anything that made it worse and she was not able to express if there was. She continued to explain that she is still having pain on urination. During this time is was difficult to get a clear history and picture of what was going on wi th the patient in terms of this being a separate or concurrent pain with her ongoing kidney infection. We will talk to the patient later today with a translation service to get a better understanding of what is causing the patient abdominal pain. The patient is aware we may have to perform a endoscope tomorrow but we will not proceed until the translation service is contacted. Encounter with Translation Services: ID # [id number] Continued conversation with patient using the hospital translation services. The information provided is a summary of the conversation between the pt and Dr. Hood. Pt states that the pain she has is different from the kidney pain she is feeling. She states that she had felt this pain before and it has not been this bad since she was in [facility] 9-10 years ago. She stated that the pain is in the front area and it is a burning pain. She states the pain occurs about twice a week. When asked if she has taken medication for it or if she has seen a doctor about this she stated she had not. It was explained to her that it would be good to take a look with an EGD to see what is occurring in her esophagus, stomach and first part of the duodenum via a EGD. The patient verbally consented with the nurse present that it would be okay to perform an EGD tomorrow December 27 2018. We explained that she should not eat or drink after midnight and the procedure should not take long and it would take 20-30 minutes post EGD to recover from anesthesia. It was explained to her that she would have to consent for the procedure by signing the documents presented to her by the nurse and she said okay. The aforementioned encounter is a a summary of the interaction between the patient and the doctor and full manuscript if needed should be obtained through translation services via the ID number located above. Allergies and Home Medications Allergies Coded Allergies: No Known Drug Allergies (Unverified , 07/15/12) Home Medications Acetaminophen 325 Mg Tablet, 325 MG PO PRN, (Reported) Ibuprofen 800 Mg Tab, 800 MG PO PRN, (Reported) FEVER Past Fbvifcj-Hvnlfk-Psweat Hx Patient Social History Alcohol Use: Denies Use Recreational Drug Use: No Smoking Status: Never a Smoker Recent Foreign Travel: No Contact w/Someone Who Travel: No Recent Infectious Disease Expo: No Recent Hopitalizations: No Seasonal Allergies Seasonal Allergies: No Surgeries History of Surgeries: No Respiratory History of Respiratory Disorde: No Cardiovascular History of Cardiac Disorders: No Neurological History of Neurological Disord: No Reproductive System Hx Reproductive Disorders: No Sexually Transmitted Disease: Yes Genitourinary History of Genitourinary Disor: No Gastrointestinal History of Gastrointestinal Di: Yes (SBO) Musculoskeletal History of Musculoskeletal Dis: No Endocrine History of Endocrine Disorders: No HEENT History of HEENT Disorders: No Cancer History of Cancer: No Psychosocial History of Psychiatric Problem: No Integumentary History of Skin or Integumenta: No Blood Transfusions History of Blood Disorders: No Family Medical History Significant Family History: No Pertinent Family Hx Physical Exam-General Problems Physical Exam Vital Signs Vital Signs - First Documented 12/23/18 12/24/18 22:30 01:59 Temp 40.5 Pulse 102 Resp 16 B/P (MAP) 103/56 (72) Pulse Ox 96 O2 Delivery Room Air Capillary Refill : Less Than 3 SecondsLess Than 3 Seconds Data Review Labs Laboratory Tests 12/25/18 12:10: Glucometer 170H 12/26/18 04:50: White Blood Count 11.1H, Red Blood Count 3.41L, Hemoglobin 10.4L, Hematocrit 31L , Mean Corpuscular Volume 91, Mean Corpuscular Hemoglobin 30, Mean Corpuscular Hemoglobin Concent 34, Red Cell Distribution Width 13.6, Platelet Count 211, Mean Platelet Volume 11.6H, Neutrophils (%) (Auto) 72, Lymphocytes (%) (Auto) 18, Monocytes (%) (Auto) 10, Eosinophils (%) (Auto) 0, Basophils (%) (Auto) 0, Neutrophils # (Auto) 8.0H, Lymphocytes # (Auto) 2.0, Monocytes # (Auto) 1.1H, Eosinophils # (Auto) 0.0, Basophils # (Auto) 0.0, Sodium Level 138, Potassium Level 3.7, Chloride Level 111H, Carbon Dioxide Level 21, Anion Gap 6, Blood Urea Nitrogen 15, Creatinine 0.73, Estimat Glomerular Filtration Rate > 60, BUN/Creatinine Ratio 21, Glucose Level 90, Calcium Level 7.7L, Corrected Calcium 8.8, Phosphorus Level 1.8L, Magnesium Level 2.0, Total Bilirubin 0.3, Aspartate Amino Transf (AST/SGOT) 22, Alanine Aminotransferase (ALT/SGPT) 33, Alkaline Phosphatase 71, Total Protein 4.8L, Albumin 2.6L Microbiology 12/23/18 Blood Culture - Preliminary, Resulted No growth 12/23/18 Urine Culture - Final, Complete Escherichia coli Clinical Quality Measures DVT/VTE Risk/Contraindication: Risk Factor Score Per Nursin RFS Level Per Nursing on Admit: 3=High KATE HOOD DO 12/26/18 1418: History of Present Illness History of Present Illness Time Seen by Provider: 11:20 History of Present Illness I saw pt at 11:20 (with family member translating) and then went back to talk to her using the language line. Allergies and Home Medications Allergies Coded Allergies: No Known Drug Allergies (Unverified , 07/15/12) Home Medications Acetaminophen 325 Mg Tablet, 325 MG PO PRN, (Reported) Ibuprofen 800 Mg Tab, 800 MG PO PRN, (Reported) FEVER Patient Home Medication List Home Medication List Reviewed: Yes Past Iielkds-Ibtlvt-Sjgftn Hx Family Medical History Significant Family History: Hypertension (pt denies her mother has HTN) Physical Exam-General Problems Physical Exam General Appearance: WD/WN, no apparent distress Eyes: Bilateral Eye PERRL, Bilateral Eye EOMI HEENT: pharynx normal; No scleral icterus (R), No scleral icterus (L), No pale conjunctivae (R), No pale conjunctivae (L) Neck: non-tender, full range of motion, supple, normal inspection Respiratory: chest non-tender, lungs clear, normal breath sounds, no respiratory distress, no accessory muscle use Cardiovascular: regular rate, rhythm, no murmur Gastrointestinal: normal bowel sounds, soft, no organomegaly, no pulsatile mass, tenderness (epigastric with palpation) Back: no vertebral tenderness, CVA tenderness (L) Neurologic/Psychiatric: stock trader II-XII nml as tested, no motor/sensory deficits, alert, normal mood/affect, oriented x 3 Skin: normal color, warm/dry Lymphatic: no adenopathy (neck, axilla or groin) Assessment/Plan Assessment/Plan Assessment/Plan Epigastric pain/Gastritis Pyelonephritis Pt is being treated for her pyelonephritis, but had severe epigastric pain last night. I believe she has gastritis and should have an EGD to work it up. Will make her NPO after midnight and get consent for EGD; discussed risks and complications with pt, not limited to pain, bleeding and even esophageal perforation. All questions answered to her satisfaction. Will do biopsy and make sure she does not have H. Pylori. Supervisory-Addendum Brief Verification & Attestation Participated in pt care: history, MDM Personally performed: exam, history, MDM Care discussed with: Medical Student Procedures: n/a Verification and Attestation of Medical Student E/M Service A medical student performed and documented this service in my presence. I reviewed and verified all information documented by the medical student and made modifications to such information, when appropriate. I personally performed the physical exam and medical decision making. Kate Hood, Dec 26, 2018,15:05 [facility] Dec 26, 2018 11:44 KATE LONGORIA DO Dec 26, 2018 14:18 POS
[2018-12-26] MEDS: ENOXAPARIN 40 MG/0.4 ML (LOVENOX) SYR SC SCH (12:09)
[2018-12-26 12:25] VITALS: BP 103/62
--- NOTE | 2018-12-26 13:47 | Progress Note - Hospitalist ---
Subjective HPI/CC On Admission Date Seen by Provider: Dec 26, 2018 Time Seen by Provider: 12:15 Chief complaint: Pyelonephritis History of present illness: This is a 38-year-old female [facility] who was admitted last night for acute pyelonephritis and fever. Nurse reported to me she was experiencing significant hypotension of systolic 70 and IV fluids have been given but when I assessed her she appeared to be in moderate distress immediately or criteria for severe sepsis so she was admitted to the ICU consult with Dr. Sylvester and I follow the sepsis protocol with IV fluids. She was given Rocephin. I did communicate with her with the language translation line. Subjective/Events-last exam Patient doing very well Pain is much improved Dr. Hood will perform EGD tomorrow morning We will Hep-Lock IV fluid Pain medication is tolerated well PPI and Carafate were started Abdominal pain started about 4 months ago Review of Systems Gastrointestinal: Abdominal Pain Focused Exam Lactate Level 12/23/18 22:53: Lactic Acid Level 1.28 12/24/18 10:25: Lactic Acid Level 1.25 12/25/18 02:33: Lactic Acid Level 1.66 Time of Focused Exam: 00:33 Objective Exam Vital Signs Vital Signs Date Time Temp Pulse Resp B/P (MAP) Pulse Ox O2 Delivery O2 Flow Rate FiO2 12/26/18 08:53 37.1 55 16 92/57 (69) 98 Room Air Capillary Refill : Less Than 3 SecondsLess Than 3 Seconds General Appearance: No Apparent Distress, WD/WN Respiratory: Chest Non Tender, Lungs Clear, Normal Breath Sounds, No Accessory Muscle Use, No Respiratory Distress Cardiovascular: Regular Rate, Rhythm, No Edema, No Gallop, No JVD, No Murmur, Normal Peripheral Pulses Neurologic/Psychiatric: Alert, Oriented x3, No Motor/Sensory Deficits, Normal Mood/Affect Results/Procedures Lab Laboratory Tests 12/26/18 04:50 Patient resulted labs reviewed. Assessment/Plan Assessment and Plan Assess & Plan/Chief Complaint Assessment: Severe sepsis with hypotension requiring ICU transfer and aggressive IV fluids Acute pyelonephritis Abdominal pain prompting Dr Hood to schedule EGD tomorrow Plan: Transfer to fourth floor IV fluid heplock Pain medication IV antibiotics maintained EGD in am Urine culture reviewed Diagnosis/Problems Diagnosis/Problems (1) Severe sepsis Status: Acute (2) Pyelonephritis Status: Acute (3) Leukocytosis Status: Acute Qualifiers: Leukocytosis type: leukemoid reaction Qualified Codes: D72.823 - Leukemoid reaction Clinical Quality Measures DVT/VTE Risk/Contraindication: Risk Factor Score Per Nursin RFS Level Per Nursing on Admit: 3=High GASPER POND DO Dec 26, 2018 13:47 POS
--- NOTE | 2018-12-26 15:57 | NUR ---
surgical consent signed and on the chart. This RN used the hospital translation phone to obtain consent. this RN also had another RN witness and sign the surgical consent. patient verbalizes understanding of the procedure at this time
[2018-12-26 16:00] VITALS: BP 100/62
[2018-12-26] MEDS: PANTOPRAZOLE 40 MG (PROTONIX) TAB PO SCH (20:38)
[2018-12-26 20:59] VITALS: BP 110/53
[2018-12-26] MEDS ORDERED: cefTRIAXone 1,000 MG IV (ROCEPHIN) VIAL ONE ×2 (23:50→23:51)
[2018-12-26] MEDS ORDERED: WATER (STERILE) FOR INJECTION 10 ML ONE (23:51)
[2018-12-26] MEDS: cefTRIAXone 1,000 MG/SWFI 10 ML IV PUSH IV SCH ×2 (23:57)
[2018-12-27 05:29] LABS: BASOPHILS % (AUTO) 0 % (0-10); EOSINOPHILS # (AUTO) 0.1 10^3/uL (0.0-0.3); EOSINOPHILS % (AUTO) 2 % (0-10); HEMATOCRIT 35 % (35-52); HEMOGLOBIN 11.7 G/DL (11.5-16.0); LYMPHOCYTES # (AUTO) 1.1 X 10^3 (1.0-4.0); LYMPHOCYTES % (AUTO) 20 % (12-44); MEAN CORPUSCULAR HEMOGLOBIN 31 PG (25-34); MEAN CORPUSCULAR HGB CONC 34 G/DL (32-36); MEAN CORPUSCULAR VOLUME 91 FL (80-99); MONOCYTES # (AUTO) 0.9 X 10^3 (0.0-1.0); MONOCYTES % (AUTO) 17 % (0-12); NEUTROPHILS # (AUTO) 3.5 X 10^3 (1.8-7.8); NEUTROPHILS % (AUTO) 61 % (42-75); PLATELET COUNT 260 10^3/uL (130-400); RED CELL DISTRIBUTION WIDTH 13.4 % (10.0-14.5); WHITE BLOOD COUNT 5.6 10^3/uL (4.3-11.0)
[2018-12-27] MEDS: SUCRALFATE 1 GM (CARAFATE) TAB PO SCH (05:43)
[2018-12-27 05:54] LABS: ALANINE AMINOTRANSFERASE 30 U/L (0-55); ALBUMIN 2.8 GM/DL (3.2-4.5); ALKALINE PHOSPHATASE 72 U/L (40-136); BILIRUBIN,TOTAL 0.2 MG/DL (0.1-1.0); BUN/CREATININE RATIO 9; CALCIUM 7.9 MG/DL (8.5-10.1); CARBON DIOXIDE 24 MMOL/L (21-32); CHLORIDE 109 MMOL/L (98-107); CREATININE SERUM 0.74 MG/DL (0.60-1.30); GFR ESTIMATED > 60; GLUCOSE 83 MG/DL (70-105); POTASSIUM 3.7 MMOL/L (3.6-5.0); SODIUM 141 MMOL/L (135-145); TOTAL PROTEIN 5.2 GM/DL (6.4-8.2)
[2018-12-27] MEDS: KETOROLAC 15 MG/ML VIAL IVP PRN (07:40)
--- NOTE | 2018-12-27 07:53 | Progress Note - Surgery ---
Subjective Date Seen by a Provider: Dec 27, 2018 Time Seen by a Provider: 07:00 Subjective/Events-last exam When seen today, used language line, [place] [id number]. She reported feeling better today overall, she denies having any of the abdominal pain or pain associated with her pyelonephritis today. Confirms that she has been NPO since midnight. She denied having any abdominal pain on palpation, but did have back pain with gayatri's punch on her R. Her only complaint today was of pain on urination for the past two hours. For the physical exam I did not use the language line. Review of Systems General: No Chills Pulmonary: No Pleuritic Chest Pain Cardiovascular: No: Chest Pain Gastrointestinal: No: Nausea, Abdominal Pain Genitourinary: Dysuria; No Hematuria Focused Exam Lactate Level 12/24/18 10:25: Lactic Acid Level 1.25 12/25/18 02:33: Lactic Acid Level 1.66 Time of Focused Exam: 00:33 Objective Exam Vital Signs Date Time Temp Pulse Resp B/P (MAP) Pulse Ox O2 Delivery O2 Flow Rate FiO2 12/26/18 20:59 37.5 59 16 110/53 (72) 100 Room Air 12/26/18 20:00 Room Air 12/26/18 16:00 36.4 63 16 100/62 (75) 98 Room Air 12/26/18 12:25 36.3 52 16 103/62 (76) 99 Room Air 12/26/18 08:53 37.1 55 16 92/57 (69) 98 Room Air 12/26/18 08:00 Room Air I & O 12/27/18 07:00 Intake Total 1980 ml Output Total 3700 ml Balance -1720 ml Capillary Refill : Less Than 3 SecondsLess Than 3 Seconds General Appearance: No Apparent Distress, WD/WN, Anxious Neck: Normal Inspection, Non Tender, Supple Respiratory: Chest Non Tender, Lungs Clear, Normal Breath Sounds, No Accessory Muscle Use, No Respiratory Distress Cardiovascular: Regular Rate, Rhythm, No Edema, No Murmur Gastrointestinal: non tender, soft, no organomegaly, abnormal bowel sounds (hypoactive) Extremity: Normal Inspection, Normal Range of Motion Neurologic/Psychiatric: Alert, Oriented x3, Normal Mood/Affect Skin: Normal Color, Warm/Dry Lymphatic: No Adenopathy Other comments positive gayatri's punch on R Results Lab Laboratory Tests 12/27/18 04:55: White Blood Count 5.6, Red Blood Count 3.81L, Hemoglobin 11.7, Hematocrit 35, Mean Corpuscular Volume 91, Mean Corpuscular Hemoglobin 31, Mean Corpuscular Hemoglobin Concent 34, Red Cell Distribution Width 13.4, Platelet Count 260, Mean Platelet Volume 11.0H, Neutrophils (%) (Auto) 61, Lymphocytes (%) (Auto) 20, Monocytes (%) (Auto) 17H, Eosinophils (%) (Auto) 2, Basophils (%) (Auto) 0, Neutrophils # (Auto) 3.5, Lymphocytes # (Auto) 1.1, Monocytes # (Auto) 0.9, Eo sinophils # (Auto) 0.1, Basophils # (Auto) 0.0, Sodium Level 141, Potassium Level 3.7, Chloride Level 109H, Carbon Dioxide Level 24, Anion Gap 8, Blood Urea Nitrogen 7, Creatinine 0.74, Estimat Glomerular Filtration Rate > 60, BUN/Crea tinine Ratio 9, Glucose Level 83, Calcium Level 7.9L, Corrected Calcium 8.9, Total Bilirubin 0.2, Aspartate Amino Transf (AST/SGOT) 23, Alanine Aminotransferase (ALT/SGPT) 30, Alkaline Phosphatase 72, Total Protein 5.2L, Albumin 2.8L Microbiology 12/23/18 Blood Culture - Preliminary, Resulted No growth 12/23/18 Urine Culture - Final, Complete Escherichia coli Assessment/Plan Assessment/Plan Assessment/Plan Epigastric pain/Gastritis Pyelonephritis Will have EGD with biopsy this morning to evaluate epigastric pain/gastritis. Clinical Quality Measures DVT/VTE Risk/Contraindication: Risk Factor Score Per Nursin RFS Level Per Nursing on Admit: 3=High KENNETH SORENSON MED STUDENT Dec 27, 2018 07:53 POS
[2018-12-27 08:00] VITALS: BP 108/68
[2018-12-27] MEDS ORDERED: proPOfol 200 MG/20 ML (DIPRIVAN) VIAL IV ONE (09:27)
[2018-12-27] MEDS ORDERED: LACTATED RINGERS 1,000 ML IV ONE (09:29)
[2018-12-27 09:45] VITALS: BP 109/71
[2018-12-27 09:50] VITALS: BP 109/72
--- NOTE | 2018-12-27 09:55 | Progress Note-Post Operative ---
Post-Operative Progess Note Surgeon (s)/Bean Snapper (s) Surgeon KATE HAYES DO Bean Snapper: none Pre-Operative Diagnosis Severe epigastric pain Post-Operative Diagnosis Gastritis and Gastric ulcers small hiatal hernia Procedure & Operative Findings Date of Procedure 12/27/18 Procedure Performed/Findings EGD with bx Anesthesia Type IV sedation by SOFTWARE APPLICATIONS DESIGNER Estimated Blood Loss Estimated blood loss (mL): scant Specimens/Packing Specimens Removed antral bx antral bx of ulcer body of stomach bx KATE HAYES DO Dec 27, 2018 09:55 POS
[2018-12-27] MEDS ORDERED: PANT40TA3 PO (10:07)
[2018-12-27] MEDS ORDERED: AMOX-358 PO (10:07)
--- NOTE | 2018-12-27 10:07 | Discharge Summary ---
Discharge Summary Hospital Course Was the Problem List Reviewed?: Yes Problems/Dx: (1) Severe sepsis Status: Acute (2) Pyelonephritis Status: Acute (3) Leukocytosis Status: Acute Qualifiers: Qualified Codes: D72.823 - Leukemoid reaction Hospital Course Date of Admission: Dec 24, 2018 at 00:45 Admission Diagnosis : Family Physician/Provider: Mikey Le Aprn Date of Discharge: 12/27/18 Discharge Diagnosis: sepsis, pyelonephritis, fever, abdominal pain Hospital Course: Hospital course: Pt had a standard hospital course after being admitted for acute pyelonephritis found to have severe sepsis of transfer from 4th floor to ICU and aggressive IV fluids initiated, maintained on Rocephin and urine culture shows Davidson sensitive E.coli and no evidence of blood culture bacteremia so she was discharged on Augmentin for completion of the treatment for UTI and she did undergo EGD by. Dr. Hood and she will be placed on proton pump inhibitor. Labs and Pending Lab Test: Laboratory Tests 12/27/18 04:55: White Blood Count 5.6, Red Blood Count 3.81L, Hemoglobin 11.7, Hematocrit 35, Mean Corpuscular Volume 91, Mean Corpuscular Hemoglobin 31, Mean Corpuscular Hemoglobin Concent 34, Red Cell Distribution Width 13.4, Platelet Count 260, Mean Platelet Volume 11.0H, Neutrophils (%) (Auto) 61, Lymphocytes (%) (Auto) 20, Monocytes (%) (Auto) 17H, Eosinophils (%) (Auto) 2, Basophils (%) (Auto) 0, Neutrophils # (Auto) 3.5, Lymphocytes # (Auto) 1.1, Monocytes # (Auto) 0.9, Eosinophils # (Auto) 0.1, Basophils # (Auto) 0.0, Sodium Level 141, Potassium Level 3.7, Chloride Level 109H, Carbon Dioxide Level 24, Anion Gap 8, Blood Urea Nitrogen 7, Creatinine 0.74, Estimat Glomerular Filtration Rate > 60, BUN/Creatinine Ratio 9, Glucose Level 83, Calcium Level 7.9L, Corrected Calcium 8.9, Total Bilirubin 0.2, Aspartate Amino Transf (AST/SGOT) 23, Alanine Aminotransferase (ALT/SGPT) 30, Alkaline Phosphatase 72, Total Protein 5.2L, Albumin 2.8L Microbiology 12/23/18 Blood Culture - Preliminary, Resulted No growth 12/23/18 Urine Culture - Final, Complete Escherichia coli Home Meds Active Pantoprazole Sodium 40 Mg Tablet.dr 40 Mg PO HS Augmentin 875-125 Tablet (Amoxicillin/Potassium Clav) 1 Each Tablet 1 Each PO BID WITH MEALS Reported Tylenol (Acetaminophen) 325 Mg Tablet 325 Mg PO PRN Motrin (Ibuprofen) 800 Mg Tab 800 Mg PO PRN FEVER Assessment/Pt Instructions [facility] 1 week Discharge Planning: <30 minutes discharge planning Discharge Instructions Discharge Diet: No Restrictions Activity as Tolerated: Yes Discharge Physical Examination Vital Signs Vital Signs Date Time Temp Pulse Resp B/P (MAP) Pulse Ox O2 Delivery O2 Flow Rate FiO2 12/27/18 09:50 54 16 98 Room Air 12/27/18 09:45 10 12/27/18 08:00 36.5 108/68 (81) General Appearance: No Apparent Distress, WD/WN, Chronically ill Respiratory: Lungs Clear Cardiovascular: Regular Rate, Rhythm Neurologic/Psychiatric: Alert, Oriented x3, No Motor/Sensory Deficits, Normal Mood/Affect Allergies: Coded Allergies: No Known Drug Allergies (Unverified , 07/15/12) Discharge Summary Date of Admission Dec 24, 2018 at 00:45 Date of Discharge Discharge Date: Dec 27, 2018 Admission Diagnosis Assessment: Severe sepsis Acute pyelonephritis Leukocytosis Plan: Moved ICU Monitor closely Appreciate director of reimbursement consultation Discharge Diagnosis Assessment: Severe sepsis with hypotension requiring ICU transfer and aggressive IV fluids Acute pyelonephritis Abdominal pain prompting Dr Hood to schedule EGD tomorrow Plan: Transfer to fourth floor IV fluid heplock Pain medication IV antibiotics maintained EGD in am Urine culture reviewed (1) Severe sepsis Status: Acute (2) Pyelonephritis Status: Acute (3) Leukocytosis Status: Acute Qualifiers: Qualified Codes: D72.823 - Leukemoid reaction Clinical Quality Measures DVT/VTE Risk/Contraindication: Risk Factor Score Per Nursin RFS Level Per Nursing on Admit: 3=High GASPER POND DO Dec 27, 2018 10:07 POS
--- NOTE | 2018-12-27 10:19 | NUR ---
CM/TAHIR spoke with the patient's RN, she does not feel that family would have needs at discharge. Family does not speak Tajik well.
[2018-12-27 11:32] VITALS: BP 109/72
--- NOTE | 2018-12-27 13:16 | Anesthesia-General Post-Op ---
MAC Patient Condition Mental Status/LOC: Same as Preop Cardiovascular: Satisfactory Nausea/Vomiting: Absent Respiratory: Satisfactory Pain: Controlled Complications: Absent Post Op Complications Complications None Follow Up Care/Instructions Patient Instructions None needed. Anesthesiology Discharge Order Discharge Order Patient is doing well, no complaints, stable vital signs, no apparent adverse anesthesia problems. No complications reported per nursing. GRETA VÁZQUEZ CRNA Dec 27, 2018 13:16 POS
--- NOTE | 2018-12-27 15:30 | OPERATIVE REPORT ---
DATE OF SERVICE: PREOPERATIVE DIAGNOSIS: Severe epigastric pain. POSTOPERATIVE DIAGNOSES: Gastritis, gastric ulcers, small hiatal hernia. PROCEDURE: EGD with biopsy. SURGEON: Giovanni Hood DO. MANAGER STERILE: None. ANESTHESIA: IV sedation by GLASS FORMING ENGINEER. SPECIMEN: Two biopsies from the antrum, one from ulcer and then one biopsy from body of stomach. BLOOD LOSS: Scant. FLUIDS: Per anesthesia. POSTOPERATIVE CONDITION: Stable. INDICATION FOR PROCEDURE: The patient is a 38-year-old female, who has been having severe epigastric pain, had actually had pain for four months that has not gotten better, was severe the night before. She thinks she may have had something like this about nine years ago, but not necessarily as bad, needed an EGD. FINDINGS: The patient had lot of ulcers in the antrum. Pictures taken. Biopsy done. PROCEDURE NOTE: After informed consent was obtained, the patient was brought to the endoscopy suite and placed in the bed in left lateral decubitus position. She was administered IV sedation by the GLASS FORMING ENGINEER who then monitored her vitals the entire time, heart rate, blood pressure and pulse ox and the scope was inserted down the mouth through the esophagus into the stomach. Upon entering the stomach, noted ulcers, pushed into the duodenum, took a picture of the duodenum and then pulled back and did a biopsy of the antrum and then retroflexed the scope, saw a small hiatal hernia, did a biopsy of body of stomach and then elected to do another biopsy in the antrum of one of the ulcers. Had taken a picture of the GE junction on the way down. It looked normal. At this point, then suctioned out the air, pulled the scope up the esophagus and out the mouth. The patient tolerated the procedure, recovered in endoscopy suite. Job ID: [id number] DocumentID: [id number] Dictated Date: 12/27/2018 09:50:51 Boat Wrapper Date: 12/27/2018 15:29:48 Dictated By: GIOVANNI HOOD DO
== END 2018-12-27 11:25 | disposition home or self-care (01) | DRG 872 ==
LOC: EDUNIT# 22:20 → ER 22:24 → 4TH 12-24 00:45 → ICU 12-24 10:31 → 4TH 12-25 12:59
PROVIDERS: ADMIT Family Medicine; ATTEND Family Medicine
PROC: 0DB68ZX Excision of Stomach, Via Natural or Artificial Opening Endoscopic, Diagnostic (ICD-10-PCS; 2018-12-27)
PROC: 0DB78ZX Excision of Stomach, Pylorus, Via Natural or Artificial Opening Endoscopic, Diagnostic (ICD-10-PCS; principal; 2018-12-27 09:37)
DX: A41.51 Sepsis due to Escherichia coli [E. coli] (principal); R65.20 Severe sepsis without septic shock; N10 Acute pyelonephritis; I95.9 Hypotension, unspecified; E87.2 Acidosis; K29.70 Gastritis, unspecified, without bleeding; D64.9 Anemia, unspecified; K25.9 Gastric ulcer, unspecified as acute or chronic, without hemorrhage or perforation; D72.829 Elevated white blood cell count, unspecified; T38.0X5A Adverse effect of glucocorticoids and synthetic analogues, initial encounter; K44.9 Diaphragmatic hernia without obstruction or gangrene; Z86.19 Personal history of other infectious and parasitic diseases
CPT/HCPCS: 36415; 71045; 74176; 76700; 80048; 80053; 81000; 82150; 82962; 83605; 83690; 83735; 84100; 84450; 84460; 84484; 84703; 85007; 85025; 85027; 85610; 85730; 87040; 87077; 87081; 87088; 87186

== ENCOUNTER 2020-09-08 19:14 | Inpatient (IN) | payer BC ==
[~2020-09-08] VITALS: Ht 135 cm; Wt 57.6 kg
[2020-09-08] VITALS (8 sets, daily range): BP systolic 87–93; BP diastolic 47–60
[~2020-09-08 19:14] MED LIST changes: +AMOX-358 PO; +PANT40TA52 PO
[2020-09-08] MEDS ORDERED: LACTATED RINGERS 1,000 ML IV ONE ×3 (19:33→22:13)
[2020-09-08] MEDS ORDERED: ACETAMINOPHEN 500 MG TAB (TYLENOL) ONE (19:33)
[2020-09-08] MEDS ORDERED: cefTRIAXone 1,000 MG in WATER (STERILE) FOR INJECTION 10 ML IV ONE (19:45)
[2020-09-08] MEDS ORDERED: KETOROLAC 30 MG/ML VIAL IVP ONE (19:45)
[2020-09-08] MEDS ORDERED: NS IV 500 ML 500 ML IV ONE (19:45)
--- NOTE | 2020-09-08 19:54 | ED General ---
General Stated Complaint: SHAKING/CHILLS Source of Information: Patient Exam Limitations: Language Barrier (Language line) History of Present Illness Date Seen by Provider: Sep 08, 2020 Time Seen by Provider: 19:27 Initial Comments Patient to the ER with rigors and chills and fever, T-max 103.9. For 4 days she had some left lower quadrant pain radiating down the right lower quadrant and right flank. She had a history of pyelonephritis in the past. She may have had kidney stones in the past. Patient did take a bunch of Tylenol unknown dose about 5 hours prior to arrival. She is not having any diarrhea, discharge, nausea vomiting chest pain shortness of air or coughing. She started having dysuria the past 2 days. She has not seen a doctor for it yet. She is not on antibiotics. Allergies and Home Medications Allergies Coded Allergies: No Known Drug Allergies (Unverified , 07/15/12) Home Medications Acetaminophen 325 Mg Tablet, 325 MG PO PRN, (Reported) Amoxicillin/Potassium Clav 1 Each Tablet, 1 EACH PO BID WITH MEALS Prescribed by: GASPER POND on 12/27/18 1007 Ibuprofen 800 Mg Tab, 800 MG PO PRN, (Reported) FEVER Pantoprazole Sodium 40 Mg Tablet.dr, 40 MG PO HS Prescribed by: GAPSER POND on 12/27/18 1007 Patient Home Medication List Home Medication List Reviewed: Yes Review of Systems Review of Systems Constitutional: No chills, No diaphoresis EENTM: No ear discharge, No ear pain Respiratory: No cough, No short of breath Cardiovascular: No chest pain, No edema Gastrointestinal: No abdominal pain, No constipation, No diarrhea Genitourinary: No discharge; dysuria; No frequency, No hematuria Musculoskeletal: see HPI, back pain; No joint pain All Other Systems Reviewed Negative Unless Noted: Yes Past Guwbvdk-Ffygme-Axjyts Hx Patient Social History Tobacco Use?: No Use of E-Cig and/or Vaping dev: No Substance use?: No Seasonal Allergies Seasonal Allergies: No Past Medical History Surgeries: No Respiratory: No Cardiac: No Neurological: No Reproductive Disorders: No Sexually Transmitted Disease: Yes Genitourinary: No Gastrointestinal: Yes (SBO) Musculoskeletal: No Endocrine: No HEENT: No Cancer: No Psychosocial: No Integumentary: No Blood Disorders: No Family Medical History Hypertension Physical Exam-Suspected Sepsis Physical Exam Vital Signs Vital Signs - First Documented 09/08/20 20:24 Temp 40.0 Pulse 113 Resp 24 B/P (MAP) 123/103 (110) Pulse Ox 99 O2 Delivery Room Air Capillary Refill : Height, Weight, BMI Height: 5'0.24" Weight: 130lbs. 0.0oz. 58.148202un; 23.19 BMI Method:Stated General Appearance: No Apparent Distress, WD/WN Eyes: Bilateral Eye Normal Inspection, Bilateral Eye PERRL, Bilateral Eye EOMI HEENT: PERRL/EOMI, Normal ENT Inspection; No Moist Mucous Membranes Neck: Full Range of Motion, Normal Inspection Respiratory: Lungs Clear, Normal Breath Sounds, No Accessory Muscle Use, No Respiratory Distress Cardiovascular: Regular Rate, Rhythm, Normal Peripheral Pulses Gastrointestinal: Normal Bowel Sounds, Non Tender, Soft Extremity: Normal Capillary Refill, Normal Inspection, No Pedal Edema Neurologic/Psychiatric: Alert, Oriented x3, Other (Anxious affect, rigors and chills.) Skin: normal color, warm/dry Focused Exam Sepsis Stage: Sepsis Possible Source: Genitouriary Lactate Level 09/08/20 19:30: Lactic Acid Level 2.42*H Time of Focused Exam: 20:54 Respiratory: Lungs Clear, Normal Breath Sounds, No Accessory Muscle Use, No Respiratory Distress Cardiovascular: Regular Rate, Rhythm, No Edema, Normal Peripheral Pulses Capillary Refill: Less Than 3 Seconds Peripheral Pulses: 2+ Radial Pulses (R), 2+ Radial Pulses (L) Skin: normal color, warm/dry Lactic Acid Level Laboratory Tests Test 09/08/20 19:30 Lactic Acid Level 2.42 MMOL/L (0.50-2.00) *H Within 3hrs of presentation: Admin fluids, Admin ABX, Blood cultures prior to ABX's, Focus exam, Lactate level Progress/Results/Core Measures Suspected Sepsis SIRS Temperature: Pulse: Respiratory Rate: Laboratory Tests 09/08/20 19:30: White Blood Count 8.3 Blood Pressure / Mean: 09/08/20 19:30: Lactic Acid Level 2.42*H Laboratory Tests 09/08/20 19:30: Creatinine 0.94, Platelet Count 247, Total Bilirubin 1.0 Results/Orders Lab Results Laboratory Tests Test 09/08/20 19:30 09/08/20 19:50 Range/Units White Blood Count 8.3 4.3-11.0 10^3/uL Red Blood Count 4.03 3.80-5.11 10^6/uL Hemoglobin 12.4 11.5-16.0 g/dL Hematocrit 36 35-52 % Mean Corpuscular Volume 89 80-99 fL Mean Corpuscular Hemoglobin 31 25-34 pg Mean Corpuscular Hemoglobin Concent 35 32-36 g/dL Red Cell Distribution Width 12.2 10.0-14.5 % Platelet Count 247 130-400 10^3/uL Mean Platelet Volume 10.6 9.0-12.2 fL Immature Granulocyte % (Auto) 0 % Neutrophils (%) (Auto) 89 H 42-75 % Lymphocytes (%) (Auto) 8 L 12-44 % Monocytes (%) (Auto) 2 0-12 % Eosinophils (%) (Auto) 0 0-10 % Basophils (%) (Auto) 0 0-10 % Neutrophils # (Auto) 7.3 1.8-7.8 10^3/uL Lymphocytes # (Auto) 0.7 L 1.0-4.0 10^3/uL Monocytes # (Auto) 0.2 0.0-1.0 10^3/uL Eosinophils # (Auto) 0.0 0.0-0.3 10^3/uL Basophils # (Auto) 0.0 0.0-0.1 10^3/uL Immature Granulocyte # (Auto) 0.0 0.0-0.1 10^3/uL Neutrophils % (Manual) 88 % Lymphocytes % (Manual) 8 % Monocytes % (Manual) 4 % Blood Morphology Comment NORMAL Sodium Level 140 135-145 MMOL/L Potassium Level 3.7 3.6-5.0 MMOL/L Chloride Level 107 98-107 MMOL/L Carbon Dioxide Level 20 L 21-32 MMOL/L Anion Gap 13 5-14 MMOL/L Blood Urea Nitrogen 10 7-18 MG/DL Creatinine 0.94 0.60-1.30 MG/DL Estimat Glomerular Filtration Rate > 60 BUN/Creatinine Ratio 11 Glucose Level 91 70-105 MG/DL Lactic Acid Level 2.42 *H 0.50-2.00 MMOL/L Calcium Level 9.4 8.5-10.1 MG/DL Corrected Calcium 9.2 8.5-10.1 MG/DL Total Bilirubin 1.0 0.1-1.0 MG/DL Aspartate Amino Transf (AST/SGOT) 22 5-34 U/L Alanine Aminotransferase (ALT/SGPT) 19 0-55 U/L Alkaline Phosphatase 57 40-136 U/L Total Protein 7.2 6.4-8.2 GM/DL Albumin 4.2 3.2-4.5 GM/DL Urine Color YELLOW Urine Clarity CLEAR Urine pH 8.0 5-9 Urine Specific [place] 1.015 L 1.016-1.022 Urine Protein TRACE H NEGATIVE Urine Glucose (UA) NEGATIVE NEGATIVE Urine Ketones NEGATIVE NEGATIVE Urine Nitrite NEGATIVE NEGATIVE Urine Bilirubin NEGATIVE NEGATIVE Urine Urobilinogen 0.2 < = 1.0 MG/DL Urine Leukocyte Esterase 1+ H NEGATIVE Urine RBC (Auto) 1+ H NEGATIVE Urine RBC 2-5 H /HPF Urine WBC 10-25 H /HPF Urine Squamous Epithelial Cells 2-5 /HPF Urine Renal Epithelial Cells NONE /HPF Urine Crystals NONE /LPF Urine Bacteria MODERATE H /HPF Urine Casts NONE /LPF Urine Mucus NEGATIVE /LPF Urine Culture Indicated CULTURE PENDING My Orders Orders - TAMERA ZAVALA Acetaminophen Tablet (Tylenol Tablet) (09/08/20 19:33) Lactated Ringers (Lr 1000 Ml Iv Solution (09/08/20 19:33) Ct Abd/Pelvis Wo(Kidney Stone) (09/08/20 19:43) Ed Iv/Invasive Line Start (09/08/20 19:43) Ns Iv 500 Ml (Sodium Chloride 0.9%) (09/08/20 19:45) Lactated Ringers (Lr 1000 Ml Iv Solution (09/08/20 19:45) Ketorolac Injection (Toradol Injection) (09/08/20 19:45) Cbc With Automated Diff (09/08/20 19:43) Comprehensive Metabolic Panel (09/08/20 19:43) Blood Culture (09/08/20 19:43) Urinalysis (09/08/20 19:43) Urine Culture (09/08/20 19:43) Chest 1 View, Ap/Pa Only (09/08/20 19:43) Ed Iv/Invasive Line Start (09/08/20 19:43) Ed Iv/Invasive Line Start (09/08/20 19:43) Vital Signs Adult Sepsis Patie Q15M (09/08/20 19:43) O2 (09/08/20 19:43) Remove Rings In Anticipation O (09/08/20 19:43) Lactic Acid Analyzer (09/08/20 19:43) Ceftriaxone (Rocephin) (09/08/20 19:45) Manual Differential (09/08/20 19:30) Medications Given in ED Current Medications Medications Dose Ordered Sig/Arsenio Route Start Time Stop Time Status Last Admin Dose Admin Ceftriaxone Sodium 1000 mg/ Sterile Water 10 ml @ 200 mls/hr ONCE ONCE IV 09/08/20 19:45 09/08/20 19:47 DC 09/08/20 19:58 200 MLS/HR Ketorolac Tromethamine 30 mg ONCE ONCE IVP 09/08/20 19:45 09/08/20 19:47 DC 09/08/20 19:58 30 MG Lactated Ringer's 1,000 ml @ 0 mls/hr Q0M ONCE IV 09/08/20 19:45 09/08/20 19:47 DC 09/08/20 19:57 1,000 MLS/HR Sodium Chloride 500 ml @ 0 mls/hr Q0M ONCE IV 09/08/20 19:45 09/08/20 19:47 DC 09/08/20 19:58 999 MLS/HR Vital Signs/I&O 09/08/20 20:24 Temp 40.0 Pulse 113 Resp 24 B/P (MAP) 123/103 (110) Pulse Ox 99 O2 Delivery Room Air Capillary Refill : Progress Note #1: Time: 19:55 Progress Note 1-1/2 L would be 30 mL/kg. Rocephin for coverage for now. Septic work-up. Toradol for antipyretics and pain. Noncontrast kidney stone study CT. Progress Note #2: Time: 21:00 Progress Note Patient still has a temperature of 38.5. We will give her a gram of Tylenol now since has been over 6 hours since her last dose. We also offered her stay in the hospital for her urosepsis which she accepted. She is feeling much better now and has a nonacute, and barely tender abdomen on exam. Heart rate is down in the 80s. Blood pressure is stable 98 over 70s. Diagnostic Imaging Diagonstic Imaging: CT Plain Films/CT/US/NM/MRI: abdomen, pelvis Comments [facility] [place], [place] NAME: FROILAN PACHECO [facility] REC#: [id number] PT STATUS: REG ER : 1980 PHYSICIAN: TAMERA ZAVALA MD ADMIT DATE: 09/08/20/ER Draft Date of Exam:09/08/20 CT ABD/PELVIS WO(KIDNEY STONE) PROCEDURE: CT urinary tract, rule out kidney stone. TECHNIQUE: Multiple contiguous axial images were obtained through the abdomen and pelvis without the use of intravenous contrast. Auto Exposure Controls were utilized during the CT exam to meet ALARA standards for radiation dose reduction. INDICATION: Flank pain. COMPARISON: 12/23/2018. FINDINGS: Lung bases are clear. The gallbladder, solid organs, vascular structures and small bowel are normal. There is some uterine enlargement. Urinary bladder is normal. There is some slight constipation. No bowel obstruction or free air is seen. There is no inflammatory process. Osseous structures are normal. IMPRESSION: 1. No hydronephrosis or renal calculi. 2. Uterine enlargement. 3. Mild constipation without bowel obstruction or inflammatory process. Dictated on workstation # [id number] Dict: 09/08/202019 Trans: 09/08/202021 [facility] [id number] Interpreted by: JANIE HART Electronically signed by: Reviewed: Reviewed by Ma Diagonstic Imaging: Xray Plain Films/CT/US/NM/MRI: chest Comments [facility] [place], [place] NAME: FROILAN PACHECO [facility] REC#: [id number] PT STATUS: REG ER : 1980 PHYSICIAN: TAMERA ZAVALA MD ADMIT DATE: 09/08/20/ER Draft Date of Exam:09/08/20 CHEST 1 VIEW, AP/PA ONLY INDICATION: Sepsis. COMPARISON: 12/23/2018. EXAMINATION: Single view of the chest was obtained. FINDINGS: Clear lungs, bilaterally. The heart is normal. There is no pneumothorax but osseous structures are normal. IMPRESSION: Negative chest. Dictated on workstation # [id number] Dict: 09/08/202014 Trans: 09/08/202016 [id number] Interpreted by: JANIE HART Electronically signed by: Reviewed: Reviewed by Me Departure Communication (Admissions) Time/Spoke to Admitting Phy: 21:10 Discussed the case with Dr. Palmer and he agrees to take patient to the floor on Rocephin, IV fluids and he will see the patient. Impression Primary Impression: Pyelonephritis Additional Impression: Sepsis Qualified Codes: A41.9 - Sepsis, unspecified organism Disposition: ADMITTED INPATIENT Condition: Stable Admissions Decision to Admit Reason: Admit from ER (General) Decision to Admit/Date: Sep 08, 2020 Time/Decision to Admit Time: 21:00 Departure-Patient Inst. Referrals: LIV FREEMAN DO (PCP) Primary Care Physician PRAKASH ANGEL APRN (Family) Primary Care Physician TAMERA ZAVALA Sep 08, 2020 19:54
[2020-09-08 19:57] LABS: BASOPHILS % (AUTO) 0 % (0-10); EOSINOPHILS % (AUTO) 0 % (0-10); HEMATOCRIT 36 % (35-52); HEMOGLOBIN 12.4 g/dL (11.5-16.0); LYMPHOCYTES # (AUTO) 0.7 10^3/uL (1.0-4.0); LYMPHOCYTES % (AUTO) 8 % (12-44); MEAN CORPUSCULAR HEMOGLOBIN 31 pg (25-34); MEAN CORPUSCULAR HGB CONC 35 g/dL (32-36); MEAN CORPUSCULAR VOLUME 89 fL (80-99); MEAN PLATELET VOLUME 10.6 fL (9.0-12.2); MONOCYTES # (AUTO) 0.2 10^3/uL (0.0-1.0); MONOCYTES % (AUTO) 2 % (0-12); NEUTROPHILS # (AUTO) 7.3 10^3/uL (1.8-7.8); NEUTROPHILS % (AUTO) 89 % (42-75); PLATELET COUNT 247 10^3/uL (130-400); WHITE BLOOD COUNT 8.3 10^3/uL (4.3-11.0)
[2020-09-08 20:01] LABS: BILIRUBIN,URINE NEGATIVE (NEGATIVE); CLARITY,URINE CLEAR; COLOR,URINE YELLOW; GLUCOSE, URINE (UA) NEGATIVE (NEGATIVE); KETONES,URINE NEGATIVE (NEGATIVE); LEUKOCYTE ESTERASE ,URINE 1+ (NEGATIVE); NITRITE,URINE NEGATIVE (NEGATIVE); PROTEIN,URINE TRACE (NEGATIVE)
[2020-09-08 20:06] LABS: ALBUMIN 4.2 GM/DL (3.2-4.5); CHLORIDE 107 MMOL/L (98-107); POTASSIUM 3.7 MMOL/L (3.6-5.0); SODIUM 140 MMOL/L (135-145)
[2020-09-08 20:07] LABS: CALCIUM 9.4 MG/DL (8.5-10.1)
[2020-09-08 20:08] LABS: BACTERIA,URINE MODERATE /HPF
[2020-09-08 20:09] LABS: GLUCOSE 91 MG/DL (70-105); TOTAL PROTEIN 7.2 GM/DL (6.4-8.2)
[2020-09-08 20:10] LABS: CARBON DIOXIDE 20 MMOL/L (21-32)
[2020-09-08 20:12] LABS: ALKALINE PHOSPHATASE 57 U/L (40-136); CREATININE SERUM 0.94 MG/DL (0.60-1.30); GFR ESTIMATED > 60
[2020-09-08 20:13] LABS: BUN/CREATININE RATIO 11
[2020-09-08 20:15] LABS: ALANINE AMINOTRANSFERASE 19 U/L (0-55)
--- NOTE | 2020-09-08 20:17 | Diagnostic Imaging Report ---
INDICATION: Sepsis. COMPARISON: 12/23/2018. EXAMINATION: Single view of the chest was obtained. FINDINGS: Clear lungs, bilaterally. The heart is normal. There is no pneumothorax but osseous structures are normal. IMPRESSION: Negative chest. Dictated by: Dictated on workstation # [id number]
[2020-09-08 20:23] LABS: LYMPHOCYTES % (MANUAL) 8 %; MONOCYTES % (MANUAL) 4 %; NEUTROPHILS % (MANUAL) 88 %; RBC MORPH NORMAL
--- NOTE | 2020-09-08 20:23 | Diagnostic Imaging Report ---
PROCEDURE: CT urinary tract, rule out kidney stone. TECHNIQUE: Multiple contiguous axial images were obtained through the abdomen and pelvis without the use of intravenous contrast. Auto Exposure Controls were utilized during the CT exam to meet ALARA standards for radiation dose reduction. INDICATION: Flank pain. COMPARISON: 12/23/2018. FINDINGS: Lung bases are clear. The gallbladder, solid organs, vascular structures and small bowel are normal. There is some uterine enlargement. Urinary bladder is normal. There is some slight constipation. No bowel obstruction or free air is seen. There is no inflammatory process. Osseous structures are normal. IMPRESSION: 1. No hydronephrosis or renal calculi. 2. Uterine enlargement. 3. Mild constipation without bowel obstruction or inflammatory process. Dictated by: Dictated on workstation # [id number]
[2020-09-08] MEDS ORDERED: ONDANSETRON 4 MG/2 ML (SDV) Z0FRAN IVP PRN (22:15)
[2020-09-08] MEDS ORDERED: ACETAMINOPHEN 325 MG TABLET PO PRN (22:15)
[2020-09-08] MEDS: LACTATED RINGERS 1,000 ML IV SCH (22:57)
[2020-09-09] VITALS (7 sets, daily range): BP systolic 90–108; BP diastolic 52–72
[2020-09-09] MEDS: KETOROLAC 15 MG/ML VIAL IVP PRN ×2 (03:44→14:50)
[2020-09-09 05:27] LABS: BASOPHILS % (AUTO) 0 % (0-10); EOSINOPHILS % (AUTO) 0 % (0-10); HEMATOCRIT 32 % (35-52); HEMOGLOBIN 10.7 g/dL (11.5-16.0); LYMPHOCYTES % (AUTO) 9 % (12-44); MEAN CORPUSCULAR HEMOGLOBIN 31 pg (25-34); MEAN CORPUSCULAR HGB CONC 33 g/dL (32-36); MEAN CORPUSCULAR VOLUME 92 fL (80-99); MEAN PLATELET VOLUME 10.8 fL (9.0-12.2); MONOCYTES # (AUTO) 0.7 10^3/uL (0.0-1.0); MONOCYTES % (AUTO) 6 % (0-12); NEUTROPHILS # (AUTO) 9.8 10^3/uL (1.8-7.8); NEUTROPHILS % (AUTO) 84 % (42-75); PLATELET COUNT 204 10^3/uL (130-400); WHITE BLOOD COUNT 11.7 10^3/uL (4.3-11.0)
[2020-09-09 05:52] LABS: CHLORIDE 112 MMOL/L (98-107); POTASSIUM 3.6 MMOL/L (3.6-5.0); SODIUM 142 MMOL/L (135-145)
[2020-09-09 05:53] LABS: CALCIUM 7.8 MG/DL (8.5-10.1); GLUCOSE 102 MG/DL (70-105)
[2020-09-09 05:55] LABS: CARBON DIOXIDE 22 MMOL/L (21-32)
[2020-09-09 05:57] LABS: CREATININE SERUM 0.74 MG/DL (0.60-1.30); GFR ESTIMATED > 60
[2020-09-09 05:58] LABS: BUN/CREATININE RATIO 12
[2020-09-09] MEDS: LACTATED RINGERS 1,000 ML IV SCH ×3 (06:13→23:05)
--- NOTE | 2020-09-09 06:49 | History & Physical-Hospitalist ---
History of Present Illness HPI/Chief Complaint Chief complaint: Acute pyelonephritis Plan: This is a 40-year-old female who has a history of pyelonephritis who presents to the hospital with fever and was noted to have pyelonephritis. Patient has been placed on antibiotics Toradol and antiemetics. Patient is much improved today. 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 Patients Allergies have been reviewed. Allergies Allergies Coded Allergies No Known Drug Allergies (Unverified07/15/12) Past Jiavrpv-Zkltva-Urmcwb Hx Patient Social History Marrital Status: Employed/Student: employed Tobacco Use?: No Smoking Status: Never a Smoker Use of E-Cig and/or Vaping dev: No Substance use?: No Alcohol Use?: No Pt feels they are or have been: No Immunizations Up To Date Tetanus Booster (TDap): Unknown Hepatitis A: No Hepatitis B: No Seasonal Allergies Seasonal Allergies: No Current Status status: No status: No Advance Directives: No Advance Directive Location: Home Communicates: Verbally Primary Language: Czech Preferred Spoken Language: Czech Is interpretation needed?: Yes Implanted or Applied Medical D: None Past Medical History Sexually Transmitted Disease: Yes Kidney Infection Blood Disorders: No Family Medical History Hypertension Review of Systems Constitutional: see HPI, dizziness, fever, malaise, weakness Physical Exam Physical Exam Vital Signs Vital Signs - First Documented 09/08/20 20:24 Temp 40.0 Pulse 113 Resp 24 B/P (MAP) 123/103 (110) Pulse Ox 99 O2 Delivery Room Air Capillary Refill : Less Than 3 Seconds Height, Weight, BMI Height: 5'0.24" Weight: 130lbs. 0.0oz. 58.586093th; 31.82 BMI Method:Stated General Appearance: No Apparent Distress Eyes: Right Eye Normal Inspection, Right Eye PERRL HEENT: PERRL/EOMI, Normal ENT Inspection, Pharynx Normal, Moist Mucous Membranes Neck: Full Range of Motion, Normal Inspection, Non Tender Respiratory: Chest Non Tender, Lungs Clear, Normal Breath Sounds, No Accessory Muscle Use, No Respiratory Distress Cardiovascular: Regular Rate, Rhythm, No Edema, No Gallop, No JVD, No Murmur, Normal Peripheral Pulses Gastrointestinal: Normal Bowel Sounds, No Organomegaly, No Pulsatile Mass, Non Tender, Soft Back: Normal Inspection, No CVA Tenderness, No Vertebral Tenderness Extremity: Normal Capillary Refill, Normal Inspection, Normal Range of Motion, Non Tender, No Calf Tenderness, No Pedal Edema Neurologic/Psychiatric: Alert, Oriented x3, No Motor/Sensory Deficits, Normal Mood/Affect Skin: Normal Color, Warm/Dry Lymphatic: No Adenopathy Results Results/Procedures Labs Laboratory Tests 09/08/20 19:30 09/09/20 05:11 09/10/20 04:20 Patient resulted labs reviewed. Assessment/Plan Admission Diagnosis Assessment: Sepsis Acute pyelonephritis History of pyelonephritis Leukocytosis Plan: Antibiotics IV fluids Admission Status: Inpatient Order (span 2 midnights) Reason for Inpatient Admission: Pyelonephritis will require 3 days GASPER POND DO Sep 09, 2020 06:49
[2020-09-09] MEDS ORDERED: ACET325T38 PO (10:00)
[2020-09-09] MEDS: fentaNYL INJ 100 MCG/2 ML AMP IVP PRN ×2 (14:45→19:48)
[2020-09-09] MEDS ORDERED: cefTRIAXone 1,000 MG/SWFI 10 ML IV PUSH IV SCH ×2 (20:00)
[2020-09-10 04:24] VITALS: BP 115/76
[2020-09-10 04:35] LABS: BASOPHILS % (AUTO) 0 % (0-10); EOSINOPHILS # (AUTO) 0.1 10^3/uL (0.0-0.3); EOSINOPHILS % (AUTO) 1 % (0-10); HEMATOCRIT 32 % (35-52); HEMOGLOBIN 10.7 g/dL (11.5-16.0); LYMPHOCYTES # (AUTO) 1.2 10^3/uL (1.0-4.0); LYMPHOCYTES % (AUTO) 16 % (12-44); MEAN CORPUSCULAR HEMOGLOBIN 31 pg (25-34); MEAN CORPUSCULAR HGB CONC 33 g/dL (32-36); MEAN CORPUSCULAR VOLUME 93 fL (80-99); MONOCYTES # (AUTO) 0.7 10^3/uL (0.0-1.0); MONOCYTES % (AUTO) 10 % (0-12); NEUTROPHILS % (AUTO) 71 % (42-75); PLATELET COUNT 207 10^3/uL (130-400)
[2020-09-10 04:59] LABS: CHLORIDE 113 MMOL/L (98-107); POTASSIUM 3.9 MMOL/L (3.6-5.0); SODIUM 140 MMOL/L (135-145)
[2020-09-10 05:01] LABS: GLUCOSE 119 MG/DL (70-105); TOTAL PROTEIN 5.4 GM/DL (6.4-8.2)
[2020-09-10 05:02] LABS: CARBON DIOXIDE 20 MMOL/L (21-32)
[2020-09-10 05:03] LABS: BILIRUBIN,TOTAL 0.4 MG/DL (0.1-1.0)
[2020-09-10 05:04] LABS: ALKALINE PHOSPHATASE 98 U/L (40-136)
[2020-09-10 05:05] LABS: CREATININE SERUM 0.76 MG/DL (0.60-1.30); GFR ESTIMATED > 60
[2020-09-10 05:06] LABS: BUN/CREATININE RATIO 11
[2020-09-10 05:08] LABS: ALANINE AMINOTRANSFERASE 83 U/L (0-55)
[2020-09-10] MEDS: fentaNYL INJ 100 MCG/2 ML AMP IVP PRN (06:08)
[2020-09-10] MEDS: LACTATED RINGERS 1,000 ML IV SCH (06:09)
[2020-09-10 08:18] VITALS: BP 119/76
[2020-09-10] MEDS: KETOROLAC 15 MG/ML VIAL IVP PRN (09:17)
[2020-09-10] MEDS ORDERED: NAPR-915 PO (11:27)
[2020-09-10] MEDS ORDERED: OXC5T PO (11:27)
[2020-09-10] MEDS ORDERED: CEFD300C3 PO (11:27)
--- NOTE | 2020-09-10 11:28 | Discharge Summary ---
Discharge Summary Hospital Course Was the Problem List Reviewed?: Yes Problems/Dx: (1) Sepsis Status: Acute Qualifiers: Qualified Codes: A41.9 - Sepsis, unspecified organism (2) Pyelonephritis Status: Acute Hospital Course Date of Admission: Sep 08, 2020 at 21:10 Admission Diagnosis : Family Physician/Provider: Mikey Le Aprn Date of Discharge: 09/10/20 Discharge Diagnosis: Sepsis, pyelonephritis Hospital Course: Hospital course: Pt had a short hospital course when she was admitted for fever and flank pain found to have pyelonephritis with sepsis, she was given IV fluids, IV pain medication, IV antibiotics, blood culture revealed E. coli. She was deemed stable for discharge with labs normal, no fever and she will continue Omnicef 300 BID for an additional seven days. Labs and Pending Lab Test: Laboratory Tests 09/10/20 04:20: White Blood Count 7.0, Red Blood Count 3.47L, Hemoglobin 10.7L, Hematocrit 32L, Mean Corpuscular Volume 93, Mean Corpuscular Hemoglobin 31, Mean Corpuscular Hemoglobin Concent 33, Red Cell Distribution Width 13.1, Platelet Count 207, Mean Platelet Volume 11.0, Immature Granulocyte % (Auto) 0, Neutrophils (%) (Auto) 71, Lymphocytes (%) (Auto) 16, Monocytes (%) (Auto) 10, Eosinophils (%) (Auto) 1, Basophils (%) (Auto) 0, Neutrophils # (Auto) 5.0, Lymphocytes # (Auto) 1.2, Monocytes # (Auto) 0.7, Eosinophils # (Auto) 0.1, Basophils # (Auto) 0.0, Immature Granulocyte # (Auto) 0.0, Sodium Level 140, Potassium Level 3.9, Chloride Level 113H, Carbon Dioxide Level 20L, Anion Gap 7, Blood Urea Nitrogen 8, Creatinine 0.76, Estimat Glomerular Filtration Rate > 60, BUN/Creatinine Ratio 11, Glucose Level 119H, Calcium Level 8.0L, Corrected Calcium 8.8, Total Bilirubin 0.4, Aspartate Amino Transf (AST/SGOT) 84H, Alanine Aminotransferase (ALT/SGPT) 83H, Alkaline Phosphatase 98, Total Protein 5.4L, Albumin 3.0L Microbiology 09/08/20 Urine Culture - Final, Complete Escherichia coli 09/08/20 Blood Culture - Preliminary, Resulted Escherichia coli Home Meds Active Naproxen 500 Mg Tablet 500 Mg PO Q12H Cefdinir 300 Mg Capsule 300 Mg PO BID Reported Tylenol (Acetaminophen) 325 Mg Tablet 650 Mg PO Q6H PRN Assessment/Pt Instructions PCP in 1 week Discharge Planning: <30 minutes discharge planning Discharge Physical Examination Vital Signs Vital Signs Date Time Temp Pulse Resp B/P (MAP) Pulse Ox O2 Delivery O2 Flow Rate FiO2 09/10/20 08:18 36.3 45 14 119/76 (90) 95 Room Air General Appearance: No Apparent Distress, WD/WN, Chronically ill Respiratory: Lungs Clear Cardiovascular: Regular Rate, Rhythm Neurologic/Psychiatric: Alert, Oriented x3 Allergies: Coded Allergies: No Known Drug Allergies (Unverified , 07/15/12) Discharge Summary Date of Admission Sep 08, 2020 at 21:10 Date of Discharge Discharge Date: Sep 10, 2020 Admission Diagnosis Assessment: Sepsis Acute pyelonephritis History of pyelonephritis Leukocytosis Plan: Antibiotics IV fluids GASPER POND DO Sep 10, 2020 11:27
[2020-09-10 12:33] VITALS: BP 92/66
[2020-09-10 15:00] VITALS: BP 92/66
== END 2020-09-10 15:00 | disposition home or self-care (01) | DRG 872 ==
LOC: EDUNIT# 19:14 → ER 19:16 → 4TH 21:10
PROVIDERS: ADMIT Internal Medicine; ATTEND Internal Medicine
DX: A41.51 Sepsis due to Escherichia coli [E. coli] (principal); N10 Acute pyelonephritis; Z20.822 Contact with and (suspected) exposure to COVID-19
CPT/HCPCS: 36415; 71045; 74176; 80048; 80053; 81000; 83605; 84703; 85007; 85025; 85027; 87040; 87077; 87088; 87186; 87636

== ENCOUNTER 2021-08-09 17:13 | Emergency (ER) | payer BC ==
[~2021-08-09] VITALS: Ht 152 cm; Wt 60.0 kg
[~2021-08-09 17:13] MED LIST changes: +ACET325T38 PO; +CEFD300C3 PO; +NAPR-915 PO; +OXC5T PO
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
[2021-08-09] MEDS ORDERED: METH-732 PO ×3 (19:57→20:20)
[2021-08-09] MEDS ORDERED: DICL75TA2 PO ×3 (19:57→20:20)
[2021-08-09 20:20] VITALS: BP 102/64
== END 2021-08-09 20:21 | disposition home or self-care (01) ==
LOC: EDUNIT# 17:13 → ER 17:16
DX: S16.1XXA Strain of muscle, fascia and tendon at neck level, initial encounter (principal); S43.401A Unspecified sprain of right shoulder joint, initial encounter; S20.211A Contusion of right front wall of thorax, initial encounter; S60.221A Contusion of right hand, initial encounter; V49.40XA Driver injured in collision with unspecified motor vehicles in traffic accident, initial encounter
CPT/HCPCS: 70450; 71046; 72125; 73030; 73130

== ENCOUNTER 2022-01-20 07:28 | Emergency (ER) | payer BC ==
[~2022-01-20] VITALS: Ht 157 cm; Wt 58.9 kg
[~2022-01-20 07:28] MED LIST changes: +DICL75TA2 PO; +METH-732 PO
[2022-01-20] MEDS ORDERED: fentaNYL INJ 100 MCG/2 ML AMP IVP ONE ×2 (07:45→10:30)
[2022-01-20] MEDS ORDERED: LACTATED RINGERS 1,000 ML IV ONE (07:45)
[2022-01-20 07:56] LABS: BASOPHILS % (AUTO) 0 % (0-10); EOSINOPHILS # (AUTO) 0.2 10^3/uL (0.0-0.3); EOSINOPHILS % (AUTO) 2 % (0-10); HEMATOCRIT 38 % (35-52); LYMPHOCYTES # (AUTO) 0.9 10^3/uL (1.0-4.0); LYMPHOCYTES % (AUTO) 9 % (12-44); MEAN CORPUSCULAR HEMOGLOBIN 30 pg (25-34); MEAN CORPUSCULAR HGB CONC 34 g/dL (32-36); MEAN CORPUSCULAR VOLUME 89 fL (80-99); MEAN PLATELET VOLUME 10.6 fL (9.0-12.2); MONOCYTES # (AUTO) 0.6 10^3/uL (0.0-1.0); MONOCYTES % (AUTO) 5 % (0-12); NEUTROPHILS % (AUTO) 84 % (42-75); PLATELET COUNT 346 10^3/uL (130-400); WHITE BLOOD COUNT 10.7 10^3/uL (4.3-11.0)
[2022-01-20] MEDS ORDERED: NS 100 ML (IVPB) BAG IV ONE (08:00)
[2022-01-20] MEDS ORDERED: CATHETER FLUSH 10 ML SYR IV PRN (08:00)
[2022-01-20] MEDS ORDERED: HOLD METFORMIN - RECEIVED CONTRAST 20 ML VIAL IV SCH (08:00)
[2022-01-20] MEDS ORDERED: IOHEXOL 350 MG/ML 100 ML (OMNIPAQUE 350) VIAL IV ONE (08:00)
[2022-01-20 08:16] LABS: ALANINE AMINOTRANSFERASE 30 U/L (0-55); ALKALINE PHOSPHATASE 56 U/L (40-136); BILIRUBIN,TOTAL 0.4 MG/DL (0.1-1.0); BUN/CREATININE RATIO 13; CARBON DIOXIDE 18 MMOL/L (21-32); CHLORIDE 107 MMOL/L (98-107); CREATININE SERUM 0.77 MG/DL (0.60-1.30); GFR ESTIMATED 99; GLUCOSE 98 MG/DL (70-105); POTASSIUM 3.5 MMOL/L (3.6-5.0); SODIUM 137 MMOL/L (135-145); TOTAL PROTEIN 7.1 GM/DL (6.4-8.2)
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
--- NOTE | 2022-01-20 09:01 | Diagnostic Imaging Report ---
EXAMINATION: Right shoulder radiographs, 3 views. COMPARISON: Right shoulder radiographs August 09, 2021. HISTORY: 41-year-old female, right shoulder pain. FINDINGS: The humeral head is normally positioned relative to the glenoid. The glenohumeral joint space is well-maintained. The acromioclavicular joint is normally aligned. There are no acromioclavicular degenerative changes. There is no identified acute fracture. There is a calcified right lower lobe granuloma. IMPRESSION: 1. Unremarkable radiographic evaluation of the right shoulder. Dictated by: Dictated on workstation # [id number]
[2022-01-20 10:37] LABS: BILIRUBIN,URINE NEGATIVE (NEGATIVE); CLARITY,URINE CLEAR; COLOR,URINE YELLOW; GLUCOSE, URINE (UA) NEGATIVE (NEGATIVE); KETONES,URINE NEGATIVE (NEGATIVE); LEUKOCYTE ESTERASE ,URINE NEGATIVE (NEGATIVE); NITRITE,URINE POSITIVE (NEGATIVE); PROTEIN,URINE NEGATIVE (NEGATIVE)
[2022-01-20 10:52] LABS: BACTERIA,URINE MODERATE /HPF; SQUAMOUS EPITHELIAL CELL,UR 0-2 /HPF; WBC,URINE 0-2 /HPF
[2022-01-20 10:53] LABS: AMPHETAMINE SCREEN, URINE NEGATIVE (NEGATIVE); BARBITURATE SCREEN URINE NEGATIVE (NEGATIVE); BENZODIAZEPINES SCREEN URINE NEGATIVE (NEGATIVE); CANNABINOID SCREEN, URINE NEGATIVE (NEGATIVE); COCAINE SCREEN URINE NEGATIVE (NEGATIVE); METHADONE STAT NEGATIVE (NEGATIVE); OPIATE SCREEN URINE NEGATIVE (NEGATIVE); OXYCODONE STAT NEGATIVE (NEGATIVE); PROPOXYPHENE STAT NEGATIVE (NEGATIVE); TRICYCLIC ANTIDEPRESSANTS SCRE NEGATIVE (NEGATIVE)
[2022-01-20] MEDS ORDERED: KETOROLAC 30 MG/ML VIAL IVP ONE (11:30)
[2022-01-20] MEDS ORDERED: TETANUS,DIPTH,PERTUSS P/F (BOOSTRIX) 0.5 ML VIAL IM ONE (12:15)
[2022-01-20] MEDS ORDERED: CEPHALEXIN 250 MG (KEFLEX) CAP PO ONE (12:15)
[2022-01-20] MEDS ORDERED: ORPHENADRINE 60 MG/2 ML (NORFLEX) AMP (ED ONLY) IV ONE (12:15)
[2022-01-20] MEDS ORDERED: CYCL10TA25 PO (12:16)
[2022-01-20] MEDS ORDERED: CEPH500T PO (12:16)
[2022-01-20] MEDS ORDERED: ACHD5005 PO (12:16)
--- NOTE | 2022-01-20 12:17 | ED Fall/Injury ---
General Chief Complaint: Trauma-Non Activation Stated Complaint: FALL Nursing Triage Note: PT PRESENTS TO ED VIA EMS FROM WORK WITH COMPLAINTS OF FAINTING WHILE AT WORK FROM A STANDING POSITION. PT COMPLAINTS OF R SHOULDER, R HEAD PAIN AND LAC ABOVE R EAR. Source: patient, family, EMS Exam Limitations: language barrier History of Present Illness Date Seen by Provider: Jan 20, 2022 Time Seen by Provider: 07:30 Initial Comments This 41-year-old woman presents to the emergency room via EMS after having an accident in the workplace. She works at [employer] where she was working on the [employer] line when she experienced a syncopal episode. She reports no prodrome such as lightheadedness, dizziness, shortness of breath, or chest pain. She denies ever having a syncopal episode in the past. She is crying on arrival and in c-collar. She complains of headache and neck pain. She is having a difficult time elaborating on where exactly she is hurting. Her right shoulder is also sore. She is distraught and a difficult historian. She speaks only Romansh. Her bilingual son is also present and provides some history. A more detailed history was later obtained with the [facility] cake stripper. She does appear to have a minor laceration on the right posterior scalp and swelling in that area. She is alert and conversational but emotionally distraught and in pain. Patient did comment that she did not eat or drink anything before going to work. Location Injury Occurred: [facility] Allergies and Home Medications Allergies Coded Allergies: No Known Drug Allergies (Unverified , 07/15/12) Patient Home Medication List Home Medication List Reviewed: Yes Acetaminophen (Tylenol) 325 Mg Tablet, 650 MG PO Q6H PRN for PAIN-MILD (1-4), (Reported) Entered as Reported by: CELINA MAYFIELD on 09/09/20 1000 Cefdinir (Cefdinir) 300 Mg Capsule, 300 MG PO BID Prescribed by: GASPER POND on 09/10/20 1127 Cephalexin (Cephalexin) 500 Mg Tablet, 500 MG PO TID Prescribed by: NICOL MAURER on 01/20/22 1216 Cyclobenzaprine HCl (Cyclobenzaprine HCl) 10 Mg Tablet, 10 MG PO Q8H PRN for SPASMS Prescribed by: NICOL MAURER on 01/20/22 121 Diclofenac Sodium (Diclofenac Sodium) 75 Mg Tablet.dr, 75 MG PO BID Prescribed by: Jerry Rangel on 08/09/212019 Hydrocodone/Acetaminophen (Hydrocodone-Acetamin 5-325 mg) 5 Mg-325 Mg Tablet, 1 TAB PO Q6H PRN for PAIN-BREAKTHROUGH Prescribed by: NICOL MAURER on 01/20/221216 Methocarbamol (Methocarbamol) 750 Mg Tablet, 750 MG PO Q6-8HR Prescribed by: Jerry Rangel on 08/09/212019 Naproxen (Naproxen) 500 Mg Tablet, 500 MG PO Q12H Prescribed by: GASPER POND on 09/10/201126 Oxycodone Hcl (Oxyir Tablet) 5 Mg Tab, 5 MG PO TID PRN for PAIN-MODERATE (5-7) Prescribed by: GASPER POND on 09/10/201126 Review of Systems Review of Systems Constitutional: no symptoms reported Eyes: No Symptoms Reported Ears, Nose, Mouth, Throat: no symptoms reported Respiratory: no symptoms reported Cardiovascular: no symptoms reported Gastrointestinal: no symptoms reported Genitourinary: no symptoms reported Musculoskeletal: see HPI Skin: see HPI Psychiatric/Neurological: See HPI Past Umsfipc-Jsuocg-Kbyhsg Hx Patient Social History Tobacco Use?: No Substance use?: No Alcohol Use?: No Pt feels they are or have been: No Seasonal Allergies Seasonal Allergies: No Past Medical History Surgeries: No Respiratory: No Cardiac: No Neurological: No : No Reproductive Disorders: No Sexually Transmitted Disease: Yes Genitourinary: Yes (Pyelonephritis) Kidney Infection Gastrointestinal: Yes (SBO) Musculoskeletal: No Endocrine: No HEENT: No Cancer: No Psychosocial: No Integumentary: No Blood Disorders: No Family Medical History Hypertension Physical Exam Vital Signs Vital Signs - First Documented 01/20/22 01/20/22 07:30 13:29 Temp 36.6 Pulse 772 Resp 18 B/P (MAP) 117/84 (95) Pulse Ox 98 Capillary Refill : Less Than 3 Seconds Height, Weight, BMI Height: 5'0.24" Weight: 130lbs. 0.0oz. 58.014999jh; 23.00 BMI Method:Stated General Appearance: WD/WN, moderate distress HEENT: PERRL/EOMI, TMs normal, other (Mucous membranes moist, no dental injury, very tender hematoma on the right parietal and posterior scalp with small shallow laceration slightly oozing blood.) Neck: normal inspection, other (C-collar in place. 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, no motor/sensory deficits, alert, oriented x 3, other (Emotionally distraught) Skin: normal color, warm/dry, other (See above) Airam Coma Score Best Eye Response: (4) Open Spontaneously Best Verbal Response: (5) Oriented Best Motor Response: (6) Obeys Commands Airam Total: 15 Progress/Results/Core Measures Results/Orders Lab Results Laboratory Tests Test 01/20/22 07:41 01/20/22 10:31 Range/Units White Blood Count 10.7 4.3-11.0 10^3/uL Red Blood Count 4.28 3.80-5.11 10^6/uL Hemoglobin 13.0 11.5-16.0 g/dL Hematocrit 38 35-52 % Mean Corpuscular Volume 89 80-99 fL Mean Corpuscular Hemoglobin 30 25-34 pg Mean Corpuscular Hemoglobin Concent 34 32-36 g/dL Red Cell Distribution Width 13.7 10.0-14.5 % Platelet Count 346 130-400 10^3/uL Mean Platelet Volume 10.6 9.0-12.2 fL Immature Granulocyte % (Auto) 0 % Neutrophils (%) (Auto) 84 H 42-75 % Lymphocytes (%) (Auto) 9 L 12-44 % Monocytes (%) (Auto) 5 0-12 % Eosinophils (%) (Auto) 2 0-10 % Basophils (%) (Auto) 0 0-10 % Neutrophils # (Auto) 9.0 H 1.8-7.8 10^3/uL Lymphocytes # (Auto) 0.9 L 1.0-4.0 10^3/uL Monocytes # (Auto) 0.6 0.0-1.0 10^3/uL Eosinophils # (Auto) 0.2 0.0-0.3 10^3/uL Basophils # (Auto) 0.0 0.0-0.1 10^3/uL Immature Granulocyte # (Auto) 0.0 0.0-0.1 10^3/uL Sodium Level 137 135-145 MMOL/L Potassium Level 3.5 L 3.6-5.0 MMOL/L Chloride Level 107 98-107 MMOL/L Carbon Dioxide Level 18 L 21-32 MMOL/L Anion Gap 12 5-14 MMOL/L Blood Urea Nitrogen 10 7-18 MG/DL Creatinine 0.77 0.60-1.30 MG/DL Estimat Glomerular Filtration Rate 99 BUN/Creatinine Ratio 13 Glucose Level 98 70-105 MG/DL Calcium Level 9.0 8.5-10.1 MG/DL Corrected Calcium 9.0 8.5-10.1 MG/DL Total Bilirubin 0.4 0.1-1.0 MG/DL Aspartate Amino Transf (AST/SGOT) 30 5-34 U/L Alanine Aminotransferase (ALT/SGPT) 30 0-55 U/L Alkaline Phosphatase 56 40-136 U/L Total Protein 7.1 6.4-8.2 GM/DL Albumin 4.0 3.2-4.5 GM/DL Serum Test, Qualitative NEGATIVE NEGATIVE Serum Alcohol < 10 <10 MG/DL Urine Color YELLOW Urine Clarity CLEAR Urine pH 8.0 5-9 Urine Specific [place] 1.010 L 1.016-1.022 Urine Protein NEGATIVE NEGATIVE Urine Glucose (UA) NEGATIVE NEGATIVE Urine Ketones NEGATIVE NEGATIVE Urine Nitrite POSITIVE H NEGATIVE Urine Bilirubin NEGATIVE NEGATIVE Urine Urobilinogen 0.2 < = 1.0 MG/DL Urine Leukocyte Esterase NEGATIVE NEGATIVE Urine RBC (Auto) NEGATIVE NEGATIVE Urine RBC NONE /HPF Urine WBC 0-2 /HPF Urine Squamous Epithelial Cells 0-2 /HPF Urine Crystals NONE /LPF Urine Bacteria MODERATE H /HPF Urine Casts NONE /LPF Urine Mucus NEGATIVE /LPF Urine Culture Indicated YES Urine Opiates Screen NEGATIVE NEGATIVE Urine Oxycodone Screen NEGATIVE NEGATIVE Urine Methadone Screen NEGATIVE NEGATIVE Urine Propoxyphene Screen NEGATIVE NEGATIVE Urine Barbiturates Screen NEGATIVE NEGATIVE Ur Tricyclic Antidepressants Screen NEGATIVE NEGATIVE Urine Phencyclidine Screen NEGATIVE NEGATIVE Urine Amphetamines Screen NEGATIVE NEGATIVE Urine Methamphetamines Screen NEGATIVE NEGATIVE Urine Benzodiazepines Screen NEGATIVE NEGATIVE Urine Cocaine Screen NEGATIVE NEGATIVE Urine Cannabinoids Screen NEGATIVE NEGATIVE Micro Results Microbiology 01/20/22 Urine Culture - Preliminary, Resulted Escherichia coli My Orders Orders - NICOL SAEED MD Alcohol (01/20/22 07:39) Cbc With Automated Diff (01/20/22 07:39) Comprehensive Metabolic Panel (01/20/22 07:39) Drug Screen Stat (Urine) (01/20/22 07:39) Hcg,Qualitative Serum (01/20/22 07:39) Ua Culture If Indicated (01/20/22 07:39) Ekg Tracing (01/20/22 07:39) Monitor-Rhythm Ecg Trace Only (01/20/22 07:39) Lactated Ringers (Lr 1000 Ml Iv Solution (01/20/22 07:45) Ed Iv/Invasive Line Start (01/20/22 07:41) Fentanyl Inj (Sublimaze Injection) (01/20/22 07:45) Ct Head/Cervical Spine Wo (01/20/22 07:42) Shoulder, Right, 3 Views (01/20/22 07:42) Ct Chest/Abdomen/Pelvis W (01/20/22 07:42) Iohexol Injection (Omnipaque 350 Mg/Ml 1 (01/20/22 08:00) Received Contrast (Hold Metformin- Contr (01/20/22 08:00) Ns (Ivpb) (Sodium Chloride 0.9% Ivpb Bag (01/20/22 08:00) Sodium Chloride Flush (Catheter Flush Sy (01/20/22 08:00) Fentanyl Inj (Sublimaze Injection) (01/20/22 10:30) Urine Culture (01/20/22 10:31) Ketorolac Injection (Toradol Injection) (01/20/22 11:30) Cephalexin Capsule (Keflex Capsule) (01/20/22 12:15) Orphenadrine Inj (Ed Only) (Norflex Inje (01/20/22 12:15) Dipht,Pertuss(Acell),Tet Adult (Boostrix (01/20/22 12:15) Medications Given in ED Vital Signs/I&O 01/20/22 01/20/22 01/20/22 07:30 07:50 13:29 Temp 36.6 36.6 Pulse 772 772 51 Resp 18 18 18 B/P (MAP) 117/84 (95) 117/84 (95) 104/63 Pulse Ox 98 Blood Pressure Mean: 95 Progress Progress Note : Progress Note Pain was treated with multiple doses of fentanyl and eventually Toradol after review of imaging. CT of the head and cervical spine was viewed by me and report reviewed. C-collar was then cleared. Patient was found to have no life threatening injuries or injuries requiring immediate intervention. The wound on her scalp was shallow and did not require repair. She was given a tetanus immunization. UA was questionable for infection. She was started on Keflex for infection prophylaxis of the scalp injury as air was seen deep in the tissues on CT scan as well as for treatment of possible UTI. See discharge instructions for further discussion. Occupational health paperwork was completed. Due to unknown cause of syncope and presence of head injury with possible concussion, I did not recommend that she return to work until evaluated again in the outpatient setting. Initial ECG Impression Date: Jan 20, 2022 Initial ECG Impression Time: 08:52 Initial ECG Rate: 56 Initial ECG Rhythm: Normal Sinus Initial ECG Intervals: Normal Initial ECG Impression: Normal Comment Normal sinus rhythm with no ST elevation or depression. No abnormal intervals or axis deviation. Borderline bradycardia. Diagnostic Imaging Diagonstic Imaging: Xray Plain Films/CT/US/NM/MRI: other (right shoulder) Comments Right shoulder x-rays viewed by me and report reviewed. See report below: NAME: FROILAN PACHECO MED REC#: [id number] PT STATUS: REG ER : 1980 PHYSICIAN: NICOL SAEED MD ADMIT DATE: 01/20/22/ER Signed Date of Exam:01/20/22 SHOULDER, RIGHT, 3 VIEWS EXAMINATION: Right shoulder radiographs, 3 views. COMPARISON: Right shoulder radiographs August 09, 2021. HISTORY: 41-year-old female, right shoulder pain. FINDINGS: The humeral head is normally positioned relative to the glenoid. The glenohumeral joint space is well-maintained. The acromioclavicular joint is normally aligned. There are no acromioclavicular degenerative changes. There is no identified acute fracture. There is a calcified right lower lobe granuloma. IMPRESSION: 1. Unremarkable radiographic evaluation of the right shoulder. Dictated by: Dictated on workstation # [id number] Dict: 01/20/22 0858 Trans: 01/20/22 0939 [facility] [id number] Interpreted by: ALBINA WINKLER MD Electronically signed by: ALBINA WINKLER MD 01/20/2239 Diagonstic Imaging: CT Plain Films/CT/US/NM/MRI: c-spine, head Comments CT head and c-spine viewed by me and report reviewed by me. See report below: NAME: FROILAN PACHECO [facility] REC#: [id number] PT STATUS: DEP ER : 1980 PHYSICIAN: NICOL SAEED MD ADMIT DATE: 01/20/22/ER Signed Date of Exam:01/20/22 CT HEAD/CERVICAL SPINE WO PROCEDURE: CT head and CT cervical spine without contrast. TECHNIQUE: Multiple contiguous axial images were obtained through the brain and cervical spine without the use of intravenous contrast. Sagittal and coronal reformations through the cervical spine were then performed. Auto Exposure Controls were utilized during the CT exam to meet ALARA standards for radiation dose reduction. INDICATION: Fall. Pain in the head and neck. COMPARISON: 08/09/2021 FINDINGS: CT head: The ventricles and cortical sulci are normal in size and contour. There is no midline shift or mass-effect. No acute intra-axial hemorrhage is seen. There are no abnormal areas of increased or decreased density to suggest acute hemorrhage or edema. No extra-axial masses or collections are present. Soft tissue hematoma is noted posterior laterally on the right. There is small amount of associated soft tissue emphysema. The underlying bony calvarium is intact. The visualized paranasal sinuses again show partial opacification of the bilateral frontal sinuses. There is a new air-fluid level within the right maxillary sinus. The mastoid air cells are clear. CT cervical spine: Static alignment of the cervical spine is maintained. There is no significant anterolisthesis or retrolisthesis. There is no evidence of jumped facets. Vertebral body heights are maintained. There is no acute fracture. No bony fragments are seen within the spinal canal. No significant degenerative changes are identified. Pre and paravertebral soft tissue structures are unremarkable. Included portions lung apices are clear. IMPRESSION: 1. No acute intracranial abnormality. No CT evidence of mass, acute infarct or intracranial hemorrhage. 2. No acute fracture of the cervical spine. Dictated by: Dictated on workstation # [id number] Dict: 01/20/22 0844 Trans: 01/21/22 08 [id number] Interpreted by: CHEL JOHNS MD Electronically signed by: CHEL JOHNS MD 01/21/22815 Diagonstic Imaging: CT Plain Films/CT/US/NM/MRI: chest, abdomen, pelvis Comments CT chest, abdomen and pelvis viewed by me and report reviewed. See report below: NAME: FROILAN PACHECO [facility] REC#: [id number] PT STATUS: DEP ER : 1980 PHYSICIAN: NICOL SAEED MD ADMIT DATE: 01/20/22/ER Signed Date of Exam:01/20/22 CT CHEST/ABDOMEN/PELVIS W EXAMINATION: CT chest, abdomen and pelvis with intravenous contrast. TECHNIQUE: Multiple contiguous axial images were obtained through the chest, abdomen and pelvis after the uneventful administration of intravenous contrast. All CT scans use one or more of the following dose optimizing techniques: automated exposure control, MA and/or KvP adjustment based on patient size and exam type or iterative reconstruction. HISTORY: Chest and abdomen injury. COMPARISON: 09/08/2020 FINDINGS: There is no edema or pneumonia. No pleural effusion. No pneumothorax. No suspicious nodules. There is no axillary or supraclavicular lymphadenopathy. There is no mediastinal lymphadenopathy. Heart size is normal. There are no coronary artery calcifications. No pericardial effusion. Aorta is normal in caliber. The liver is normal without focal lesion. There is no biliary ductal dilation. Gallbladder is normal. Pancreas is normal. Spleen is normal. Adrenal glands are normal. The kidneys are normal. There is no hydronephrosis. Urinary bladder is normal. Bowel is normal in caliber without obstruction or inflammation. No free fluid or air. No abdominal or pelvic lymphadenopathy. Aorta is normal in caliber without aneurysm. There are no suspicious osseous lesions. IMPRESSION: 1. No acute traumatic injury in the chest, abdomen or pelvis. Dictated by: Dictated on workstation # [id number] Dict: 01/20/22 0839 Trans: 01/20/22 173 [id number] Interpreted by: VANIA MORGAN MD Electronically signed by: VANIA MORGAN MD 01/20/221731 Departure Impression Primary Impression: Syncope and collapse Additional Impressions: Hematoma of right parietal scalp Qualified Codes: S00.03XA - Contusion of scalp, initial encounter Scalp laceration Qualified Codes: S01.01XA - Laceration without foreign body of scalp, initial encounter UTI (urinary tract infection) Qualified Codes: N39.0 - Urinary tract infection, site not specified Disposition: HOME, SELF-CARE Condition: Improved Departure-Patient Inst. Decision time for Depature: 12:12 Referrals: LIV FREEMAN DO (PCP) Primary Care Physician PRAKASH ANGEL APRN (Family) Primary Care Physician Patient Instructions: Closed Head Injury (DC), HEMATOMA, Syncope (Fainting) Add. Discharge Instructions: You may take ibuprofen up to 600 mg every 6 hours as needed for primary pain control. Add hydrocodone as prescribed for pain not controlled by ibuprofen. Drink plenty of clear liquids to stay well-hydrated. Eat a well-balanced diet, and be sure to eat breakfast and drink liquids before going to work. Complete your antibiotics as prescribed to help prevent infection from your head injury and to treat possible bladder infection. You may use the muscle relaxer cyclobenzaprine as prescribed for tense or spasming muscles. You may ice sore or swollen body parts including your hematoma in 20-minute intervals for the first couple of days. After that, gentle heat may help with sore or tense body parts. You should not return to work until you are cleared by occupational health. You need to be screened for concussion and other possible injuries before returning to work. Avoid any activities that could predispose you to head injury such as using ladders, bike riding, contact sports, etc. until you are cleared in your follow- up appointment. Stop any activities that worsen concussion symptoms which may include headache, vision changes, confusion, irritability, etc. Follow-up with a primary care provider soon as possible in addition to the occupational health office. Return to care if you have worsening symptoms despite following these instructions. All discharge instructions reviewed with patient and/or family. Voiced understanding. Scripts Hydrocodone/Acetaminophen (Hydrocodone-Acetamin 5-325 mg) 5 Mg-325 Mg Tablet 1 TAB PO Q6H PRN for PAIN-BREAKTHROUGH, #10 TAB Prov: NICOL SAEED MD 01/20/22 Cyclobenzaprine HCl (Cyclobenzaprine HCl) 10 Mg Tablet 10 MG PO Q8H PRN for SPASMS, #10 TAB 0 Refills Prov: NICOL SAEED MD 01/20/22 Cephalexin (Cephalexin) 500 Mg Tablet 500 MG PO TID, #20 TAB Prov: NICOL SAEED MD 01/20/22 Copy Copies To 1: [facility]/NICOL HOLMAN MD Jan 20, 2022 12:16
[2022-01-20 13:29] VITALS: BP 104/63
== END 2022-01-20 13:29 | disposition home or self-care (01) ==
LOC: EDUNIT# 07:28 → ER 07:30
DX: S01.01XA Laceration without foreign body of scalp, initial encounter (principal); R55 Syncope and collapse; N39.0 Urinary tract infection, site not specified; Z28.310 Unvaccinated for COVID-19; Z23 Encounter for immunization; W18.30XA Fall on same level, unspecified, initial encounter; Y92.59 Other trade areas as the place of occurrence of the external cause; Y99.0 Civilian activity done for income or pay
CPT/HCPCS: 70450; 71260; 72125; 73030; 74177; 80053; 80306; 81000; 84703; 85025; 87077; 87088; 93005; 93041; 99284; G0480; 36415; 80320; 87186; 90715